=== PATIENT | male | born 1940 | race Caucasian/White ===

== ENCOUNTER → 2016-05-22 | Outpatient (REF) | payer MEDICARE ==
[2016-05-22 11:26] LABS: BASO % 0.3 % (0.0-1.0); EOS # 0.7 K/mm3 (0.0-0.50); EOS % 8.4 % (0.0-3.0); LARGE UNSTAINED CELL # 0.1 K/mm3 (0.0-0.4); LARGE UNSTAINED CELL % 1.6 % (0.0-4.0); LYMPH % 23.4 % (24.0-44.0); MEAN CORPUSCULAR HEMOGLOBIN 30.2 pg (27.0-33.0); MEAN CORPUSCULAR HGB CONC 32.6 g/dl (32.0-36.5); MEAN CORPUSCULAR VOLUME 92.4 fl (80.0-96.0); MONO # 0.6 K/mm3 (0.0-0.8); MONO % 7.3 % (0.0-5.0); NEUTROPHILS # 4.6 K/mm3 (1.8-7.7); PLATELET COUNT, AUTOMATED 232 k/mm3 (150-450); RED CELL DISTRIBUTION WIDTH 12.5 % (11.5-14.5); WHITE BLOOD COUNT 7.8 K/mm3 (4.0-10.0)
[2016-05-22 11:48] LABS: ALBUMIN 3.7 GM/DL (3.2-5.2); ALBUMIN/GLOBULIN RATIO 1.16 (1.00-1.93); ALKALINE PHOSPHATASE 82 U/L (45-117); ALT/SGPT 30 U/L (12-78); ANION GAP 6 MEQ/L (8-16); AST/SGOT 23 U/L (15-37); BILIRUBIN,TOTAL 0.3 MG/DL (0.2-1.0); BLOOD UREA NITROGEN 23 MG/DL (7-18); CALCIUM LEVEL 8.6 MG/DL (8.8-10.2); CARBON DIOXIDE LEVEL 27 MEQ/L (21-32); CHLORIDE LEVEL 110 MEQ/L (98-107); CHOLESTEROL LEVEL 150 MG/DL (<200); CREATININE FOR GFR 1.21 MG/DL (0.70-1.30); GLOMERULAR FILTRATION RATE > 60.0 (>42); GLUCOSE, FASTING 126 MG/DL (83-110); POTASSIUM SERUM 4.3 MEQ/L (3.5-5.1); SODIUM LEVEL 143 MEQ/L (136-145); THYROXINE (T4) 5.8 UG/DL (4.5-12.0); TOTAL PROTEIN 6.9 GM/DL (6.4-8.2); TRIGLYCERIDES LEVEL 88 MG/DL (<150)
[2016-05-22 11:57] LABS: ERYTHROCYTE SEDIMENTATION RATE 34 mm/hr (0-20)
== END ==
LOC: M SFHCCLAY 08:38
PROVIDERS: ATTEND Family Medicine
DX: D64.9 Anemia, unspecified (principal); E11.9 Type 2 diabetes mellitus without complications; M19.90 Unspecified osteoarthritis, unspecified site; E78.2 Mixed hyperlipidemia; R53.83 Other fatigue
CPT/HCPCS: 80053; 80061; 83036; 83540; 84402; 84403; 84436; 84443; 85025; 85652; 86038; 86140; 86200; G0463

== ENCOUNTER → 2016-08-07 | Outpatient (REF) | payer MEDICARE ==
[2016-08-07 18:33] LABS: BASO % 0.4 % (0.0-1.0); EOS # 0.6 K/mm3 (0.0-0.50); EOS % 8.1 % (0.0-3.0); LARGE UNSTAINED CELL # 0.1 K/mm3 (0.0-0.4); LYMPH # 1.5 K/mm3 (1.5-4.5); LYMPH % 19.3 % (24.0-44.0); MEAN CORPUSCULAR HEMOGLOBIN 31.6 pg (27.0-33.0); MEAN CORPUSCULAR HGB CONC 34.6 g/dl (32.0-36.5); MEAN CORPUSCULAR VOLUME 91.3 fl (80.0-96.0); MONO # 0.7 K/mm3 (0.0-0.8); MONO % 10.4 % (0.0-5.0); NEUTROPHILS # 4.2 K/mm3 (1.8-7.7); NEUTROPHILS % 59.7 % (36.0-66.0); PLATELET COUNT, AUTOMATED 203 k/mm3 (150-450); RED CELL DISTRIBUTION WIDTH 12.6 % (11.5-14.5)
== END ==
LOC: M SFHCCLAY 09:51
PROVIDERS: ATTEND Family Medicine
DX: D64.9 Anemia, unspecified (principal)
CPT/HCPCS: 83540; 85025; G0463

== ENCOUNTER → 2016-11-21 | Outpatient (REF) | payer MEDICARE ==
[2016-11-21 11:57] LABS: BASO % 0.3 % (0.0-1.0); EOS # 0.7 10^3/uL (0.0-0.50); EOS % 8.6 % (0.0-3.0); IMMATURE GRANULOCYTE % 0.4 % (0-0); LYMPH # 2.1 10^3/uL (1.5-4.5); LYMPH % 27.9 % (24.0-44.0); MEAN CORPUSCULAR HEMOGLOBIN 30.3 pg (27.0-33.0); MEAN CORPUSCULAR HGB CONC 33.5 g/dl (32.0-36.5); MEAN CORPUSCULAR VOLUME 90.5 fl (80.0-96.0); MONO # 0.9 10^3/uL (0.0-0.8); MONO % 11.1 % (0.0-5.0); NEUTROPHILS % 51.7 % (36.0-66.0); PLATELET COUNT, AUTOMATED 192 10^3/uL (150-450); RED CELL DISTRIBUTION WIDTH 12.4 % (11.5-14.5); WHITE BLOOD COUNT 7.7 10^3/uL (4.0-10.0)
[2016-11-21 12:07] LABS: ADD MANUAL DIFFER NO; DIFF SLIDE NUMBER 119
[2016-11-21 12:40] LABS: ANION GAP 6 MEQ/L (8-16); BLOOD UREA NITROGEN 17 MG/DL (7-18); CALCIUM LEVEL 9.4 MG/DL (8.8-10.2); CARBON DIOXIDE LEVEL 30 MEQ/L (21-32); CHLORIDE LEVEL 104 MEQ/L (98-107); CREATININE FOR GFR 1.03 MG/DL (0.70-1.30); GLOMERULAR FILTRATION RATE > 60.0 (>42); GLUCOSE, FASTING 98 MG/DL (83-110); POTASSIUM SERUM 4.3 MEQ/L (3.5-5.1); SODIUM LEVEL 140 MEQ/L (136-145)
== END ==
LOC: M SFHCCLAY 08:22
PROVIDERS: ATTEND Family Medicine
DX: E11.9 Type 2 diabetes mellitus without complications (principal); D64.9 Anemia, unspecified
CPT/HCPCS: 80048; 83036; 83540; 85025; G0463

== ENCOUNTER → 2017-05-22 | Outpatient (REF) | payer MEDICARE ==
[2017-05-22 16:51] LABS: BASO % 0.2 % (0.0-1.0); EOS # 0.4 10^3/uL (0.0-0.50); EOS % 4.6 % (0.0-3.0); HEMATOCRIT 44.4 % (42.0-52.0); HEMOGLOBIN 14.9 g/dl (13.5-17.5); IMMATURE GRANULOCYTE % 0.7 % (0-3.0); LYMPH # 2.2 10^3/uL (1.5-4.5); LYMPH % 25.3 % (24.0-44.0); MEAN CORPUSCULAR HEMOGLOBIN 30.4 pg (27.0-33.0); MEAN CORPUSCULAR HGB CONC 33.6 g/dl (32.0-36.5); MEAN CORPUSCULAR VOLUME 90.6 fl (80.0-96.0); MONO # 0.9 10^3/uL (0.0-0.8); MONO % 10.4 % (0.0-5.0); NEUTROPHILS # 5.1 10^3/uL (1.8-7.7); NEUTROPHILS % 58.8 % (36.0-66.0); PLATELET COUNT, AUTOMATED 168 10^3/uL (150-450); RED CELL DISTRIBUTION WIDTH 12.1 % (11.5-14.5); WHITE BLOOD COUNT 8.7 10^3/uL (4.0-10.0)
[2017-05-22 17:25] LABS: ALBUMIN/GLOBULIN RATIO 1.05 (1.00-1.93); ALKALINE PHOSPHATASE 82 U/L (45-117); ALT/SGPT 33 U/L (12-78); ANION GAP 6 MEQ/L (8-16); AST/SGOT 21 U/L (7-37); BILIRUBIN,TOTAL 0.6 MG/DL (0.2-1.0); BLOOD UREA NITROGEN 18 MG/DL (7-18); CALCIUM LEVEL 9.4 MG/DL (8.8-10.2); CARBON DIOXIDE LEVEL 27 MEQ/L (21-32); CHLORIDE LEVEL 106 MEQ/L (98-107); CHOLESTEROL LEVEL 180 MG/DL (<200); CREATININE FOR GFR 1.08 MG/DL (0.70-1.30); GLOMERULAR FILTRATION RATE > 60.0 (>42); GLUCOSE, FASTING 99 MG/DL (70-100); HDL CHOLESTEROL 50 MG/DL (>40); IRON (FE) 95 UG/DL (65-175); NON-HDL-C 130 MG/DL; POTASSIUM SERUM 4.4 MEQ/L (3.5-5.1); SODIUM LEVEL 139 MEQ/L (136-145); TOTAL PROTEIN 7.8 GM/DL (6.4-8.2); TRIGLYCERIDES LEVEL 145 MG/DL (<150)
[2017-05-22 17:28] LABS: ESTIMATED AVERAGE GLUCOSE 117 MG/DL (60-110); HEMOGLOBIN A1c 5.7 %
== END ==
LOC: M SFHCCLAY 09:30
DX: E11.9 Type 2 diabetes mellitus without complications (principal); E78.2 Mixed hyperlipidemia; D64.9 Anemia, unspecified
CPT/HCPCS: 83540

== ENCOUNTER → 2017-12-14 | Outpatient (REF) | payer MEDICARE ==
[2017-12-15 12:41] LABS: ALBUMIN 3.9 GM/DL (3.2-5.2); ALBUMIN/GLOBULIN RATIO 1.11 (1.00-1.93); ALKALINE PHOSPHATASE 89 U/L (45-117); ALT/SGPT 34 U/L (12-78); ANION GAP 8 MEQ/L (8-16); AST/SGOT 19 U/L (7-37); BILIRUBIN,TOTAL 0.4 MG/DL (0.2-1.0); BLOOD UREA NITROGEN 21 MG/DL (7-18); CALCIUM LEVEL 9.3 MG/DL (8.8-10.2); CARBON DIOXIDE LEVEL 27 MEQ/L (21-32); CHLORIDE LEVEL 104 MEQ/L (98-107); CREATININE FOR GFR 1.03 MG/DL (0.70-1.30); GLOMERULAR FILTRATION RATE > 60.0 (>42); GLUCOSE, FASTING 123 MG/DL (70-100); POTASSIUM SERUM 4.2 MEQ/L (3.5-5.1); SODIUM LEVEL 139 MEQ/L (136-145); TOTAL PROTEIN 7.4 GM/DL (6.4-8.2)
[2017-12-15 13:38] LABS: ESTIMATED AVERAGE GLUCOSE 117 MG/DL (60-110); HEMOGLOBIN A1c 5.7 %
== END ==
LOC: M SFHCCLAY 15:41
DX: E11.9 Type 2 diabetes mellitus without complications (principal)
CPT/HCPCS: 80053

== ENCOUNTER → 2018-06-17 | Outpatient (REF) | payer MEDICARE ==
[2018-06-17 16:58] LABS: BASO % 0.2 % (0.0-1.0); EOS # 0.6 10^3/uL (0.0-0.50); EOS % 5.9 % (0.0-3.0); HEMATOCRIT 45.5 % (42.0-52.0); HEMOGLOBIN 14.9 g/dl (13.5-17.5); LYMPH # 2.1 10^3/uL (1.5-4.5); LYMPH % 20.5 % (24.0-44.0); MEAN CORPUSCULAR HEMOGLOBIN 30.5 pg (27.0-33.0); MEAN CORPUSCULAR HGB CONC 32.7 g/dl (32.0-36.5); MEAN CORPUSCULAR VOLUME 93.2 fl (80.0-96.0); MONO # 1.1 10^3/uL (0.0-0.8); MONO % 10.6 % (0.0-5.0); NEUTROPHILS # 6.3 10^3/uL (1.8-7.7); NEUTROPHILS % 62.6 % (36.0-66.0); PLATELET COUNT, AUTOMATED 211 10^3/uL (150-450); RED BLOOD COUNT 4.88 10^6/uL (4.30-6.10)
[2018-06-17 17:05] LABS: ALT/SGPT 34 U/L (12-78); BILIRUBIN,TOTAL 0.8 MG/DL (0.2-1.0); BLOOD UREA NITROGEN 16 MG/DL (7-18); CALCIUM LEVEL 9.2 MG/DL (8.8-10.2); CARBON DIOXIDE LEVEL 30 MEQ/L (21-32); CHLORIDE LEVEL 104 MEQ/L (98-107); CHOLESTEROL LEVEL 181 MG/DL (<200); CHOLESTEROL RISK RATIO 3.232 (<5); CREATININE FOR GFR 1.11 MG/DL (0.70-1.30); GLOMERULAR FILTRATION RATE > 60.0 (>42); GLUCOSE, FASTING 109 MG/DL (70-100); HDL CHOLESTEROL 56 MG/DL (>40); IRON (FE) 116 UG/DL (65-175); LDL CHOLESTEROL 89 MG/DL (<100); NON-HDL-C 125 MG/DL; POTASSIUM SERUM 4.5 MEQ/L (3.5-5.1); SODIUM LEVEL 138 MEQ/L (136-145); TOTAL PROTEIN 7.5 GM/DL (6.4-8.2); TRIGLYCERIDES LEVEL 178 MG/DL (<150)
[2018-06-17 17:28] LABS: MALB URINE SIEMENS 33.8 MG/L; MAU/CREAT RATIO 20.6 MCG/MG (0.0-30.0)
[2018-06-17 17:53] LABS: HEMOGLOBIN A1c 5.7 %
== END ==
LOC: M SFHCCLAY 09:34
PROVIDERS: ATTEND Family Medicine
DX: D64.9 Anemia, unspecified (principal); E11.9 Type 2 diabetes mellitus without complications
CPT/HCPCS: 80053; 80061; 82043; 83036; 83540; 85025; G0463

== ENCOUNTER → 2018-12-21 | Outpatient (REF) | payer MEDICARE ==
[2018-12-21 11:27] LABS: BASO % 0.3 % (0.0-1.0); EOS # 0.5 10^3/uL (0.0-0.5); EOS % 4.7 % (0.0-3.0); HEMATOCRIT 44.7 % (42.0-52.0); HEMOGLOBIN 14.6 g/dl (13.5-17.5); LYMPH # 2.1 10^3/uL (1.5-5.0); LYMPH % 22.2 % (24.0-44.0); MEAN CORPUSCULAR HEMOGLOBIN 31.1 pg (27.0-33.0); MEAN CORPUSCULAR HGB CONC 32.7 g/dl (32.0-36.5); MEAN CORPUSCULAR VOLUME 95.3 fl (80.0-96.0); MONO % 10.8 % (0.0-5.0); NEUTROPHILS # 5.9 10^3/uL (1.5-8.5); NEUTROPHILS % 61.6 % (36.0-66.0); PLATELET COUNT, AUTOMATED 196 10^3/uL (150-450); RED BLOOD COUNT 4.69 10^6/uL (4.30-6.10); WHITE BLOOD COUNT 9.5 10^3/uL (4.0-10.0)
[2018-12-21 11:32] LABS: BLOOD UREA NITROGEN 16 MG/DL (7-18); CALCIUM LEVEL 9.7 MG/DL (8.8-10.2); CARBON DIOXIDE LEVEL 27 MEQ/L (21-32); CHLORIDE LEVEL 106 MEQ/L (98-107); CREATININE FOR GFR 1.07 MG/DL (0.70-1.30); GLOMERULAR FILTRATION RATE > 60.0 (>42); GLUCOSE, FASTING 110 MG/DL (70-100); IRON (FE) 85 UG/DL (65-175); POTASSIUM SERUM 4.4 MEQ/L (3.5-5.1); SODIUM LEVEL 139 MEQ/L (136-145)
[2018-12-21 12:19] LABS: HEMOGLOBIN A1c 5.9 %
== END ==
LOC: M SFHCCLAY 08:27
PROVIDERS: ATTEND Family Medicine
DX: E11.9 Type 2 diabetes mellitus without complications (principal); D64.9 Anemia, unspecified
CPT/HCPCS: 80048; 83036; 83540; 85025; G0463

== ENCOUNTER 2019-02-27 14:53 | Emergency (ER) | payer MEDICARE ==
[~2019-02-27] VITALS: Ht 170.2 cm; Wt 90.9 kg
[2019-02-27] MEDS ORDERED: SIMV20TA22 PO (15:37)
[2019-02-27] MEDS ORDERED: [UNRECOGNIZED DRUG - OTHER] (15:39)
[2019-02-27] MEDS ORDERED: BREO1INH PO (15:41)
[2019-02-27 16:06] LABS: HEMATOCRIT 45.5 % (42.0-52.0); HEMOGLOBIN 14.4 g/dl (13.5-17.5); MEAN CORPUSCULAR HEMOGLOBIN 29.9 pg (27.0-33.0); MEAN CORPUSCULAR HGB CONC 31.6 g/dl (32.0-36.5); MEAN CORPUSCULAR VOLUME 94.6 fl (80.0-96.0); PLATELET COUNT, AUTOMATED 216 10^3/uL (150-450); RED BLOOD COUNT 4.81 10^6/uL (4.30-6.10); WHITE BLOOD COUNT 13.1 10^3/uL (4.0-10.0)
[2019-02-27] MEDS ORDERED: NS 1,000 ML IV ONE (16:15)
[2019-02-27] MEDS ORDERED: METOCLOPRAMIDE INJ 10MG/2ML VIAL (J2765) IV ONE (16:15)
[2019-02-27] MEDS ORDERED: PANTOPRAZOLE 40MG INJ (PROTONIX) (C9113) IV ONE (16:15)
[2019-02-27 16:19] LABS: ALBUMIN 3.4 GM/DL (3.2-5.2); ALT/SGPT 31 U/L (12-78); BILIRUBIN,DIRECT 0.1 MG/DL (0.0-0.2); BILIRUBIN,TOTAL 0.4 MG/DL (0.2-1.0); BLOOD UREA NITROGEN 12 MG/DL (7-18); CALCIUM LEVEL 8.4 MG/DL (8.8-10.2); CARBON DIOXIDE LEVEL 20 MEQ/L (21-32); CHLORIDE LEVEL 106 MEQ/L (98-107); GLOMERULAR FILTRATION RATE > 60.0 (>42); GLUCOSE, FASTING 97 MG/DL (70-100); LIPASE 148 U/L (73-393); SODIUM LEVEL 137 MEQ/L (136-145); TOTAL PROTEIN 7.1 GM/DL (6.4-8.2)
[2019-02-27] MEDS: GASTROGRAFIN SOLUTION 30ML PO SCH ×2 (17:08→17:40)
[2019-02-27 17:27] LABS: ATYPICAL LYMPH 7 % (0-5); EOSINOPHILS 2 % (0-3); LYMPHOCYTES 17 % (16-44); METAMYELOCYTES 1 % (0-0); MONOCYTES 5 % (0-5); NEUTROPHILS 60 % (28-66)
[2019-02-27 17:28] LABS: OVALOCYTES 1+; PLATELET ESTIMATE NORMAL (NORMAL); POIKILOCYTOSIS 1+
[2019-02-27 17:38] LABS: INR 1.08; PROTHROMBIN TIME 13.7 SECONDS (11.8-14.0)
[2019-02-27] MEDS ORDERED: ISOVUE-370 76% 100ML VIAL (Q9967) As Ordered ONE (18:22)
--- NOTE | 2019-02-27 19:06 | REPVR ---
PROCEDURE INFORMATION: Exam: CT Abdomen And Pelvis With Contrast Exam date and time: 02/27/2019 6:21 PM Age: 78 years old Clinical indication: Abdominal pain; Generalized; Additional info: Abd pain TECHNIQUE: Imaging protocol: Computed tomography of the abdomen and pelvis with intravenous contrast. Radiation optimization: All CT scans at this facility use at least one of these dose optimization techniques: automated exposure control; mA and/or kV adjustment per patient size (includes targeted exams where dose is matched to clinical indication); or iterative reconstruction. Contrast material: ISOVUE 370; Contrast volume: 100 ml; Contrast route: IV; Other contrast: Route: Oral, Material: gastrografin; COMPARISON: No relevant prior studies available. FINDINGS: Mediastinum: A small hiatal hernia is present. Liver: There is a diffuse decrease in hepatic parenchymal density, consistent with fatty infiltration. Gallbladder and bile ducts: There are gallstones present. No evidence of cholecystitis demonstrated. Pancreas: Normal. No ductal dilation. Spleen: Normal. No splenomegaly. Adrenals: Normal. No mass. Kidneys and ureters: Punctate nonobstructive calculus lower pole right kidney. Left renal cyst measures 4.6 cm. Stomach and bowel: There is a diffusely boggy appearance of the mid and distal left colon with mural stratification and an ahasutral countour. There are pericolonic inflammatory changes. Findings consistent with acute colitis. No abscess demonstrated. Ahaustral appearance of the sigmoid colon may be related to prior involvement with colitis. Appendix: No evidence of appendicitis. Intraperitoneal space: Unremarkable. No free air. No significant fluid collection. Vasculature: The aorta demonstrates moderate atherosclerotic calcification. Lymph nodes: Unremarkable. No enlarged lymph nodes. Bladder: Unremarkable as visualized. Reproductive: The prostate gland demonstrates mild hyperplasia. Moderate right hydrocele and small left hydrocele. Bones/joints: Mild central spinal stenosis L2-L3, moderate central spinal stenosis L3-L4, moderate to severe central spinal stenosis L4-L5. Bulging annulus L5-S1. Soft tissues: Left inguinal hernia. IMPRESSION: 1. There is a diffuse decrease in hepatic parenchymal density, consistent with fatty infiltration. 2. There are gallstones present. No evidence of cholecystitis demonstrated. 3. Small hiatal hernia. 4. Punctate nonobstructive calculus lower pole right kidney. Left renal cyst measures 4.6 cm. 5. There is a diffusely boggy appearance of the mid and distal left colon with mural stratification and an ahasutral countour. There are pericolonic inflammatory changes. Findings consistent with acute colitis. No abscess demonstrated. 6. Mild prostatic hyperplasia. Electronically signed by: Efrain Ace On 02/27/2019 19:05:43 PM
[2019-02-27] MEDS ORDERED: DICY10CA13 PO (19:42)
[2019-02-27 19:50] VITALS: BP 158/74
== END 2019-02-27 19:56 | disposition home or self-care (01) ==
LOC: M ED 14:53
DX: K51.918 Ulcerative colitis, unspecified with other complication (principal); J44.9 Chronic obstructive pulmonary disease, unspecified; E78.5 Hyperlipidemia, unspecified; Z88.0 Allergy status to penicillin
CPT/HCPCS: 36415; 74177; 80048; 80076; 83690; 85025; 85610; 96361; 96374; 96375; 99284; C9113; J2765; Q9963; Q9967

== ENCOUNTER 2019-04-07 10:41 | Observation (INO) | payer MEDICARE ==
[~2019-04-07] VITALS: Ht 170.2 cm; Wt 88.8 kg
[~2019-04-07 10:41] MED LIST: BREO1INH PO; DICY10CA13 PO; SIMV20TA22 PO; [UNRECOGNIZED DRUG - OTHER]
[2019-04-07] MEDS ORDERED: FAMO1TAB11 PO (10:50)
[2019-04-07] MEDS ORDERED: FLUTISP (10:50)
[2019-04-07] MEDS ORDERED: ONDA-83 PO (10:50)
[2019-04-07] MEDS ORDERED: LOPE2CAP PO (10:50)
[2019-04-07 12:00] LABS: BASO # 0.1 10^3/uL (0.0-0.2); BASO % 0.5 % (0.0-1.0); EOS % 7.6 % (0.0-3.0); HEMATOCRIT 40.2 % (42.0-52.0); HEMOGLOBIN 13.1 g/dl (13.5-17.5); LYMPH # 2.1 10^3/uL (1.5-5.0); LYMPH % 17.2 % (24.0-44.0); MEAN CORPUSCULAR HEMOGLOBIN 29.4 pg (27.0-33.0); MEAN CORPUSCULAR HGB CONC 32.6 g/dl (32.0-36.5); MEAN CORPUSCULAR VOLUME 90.3 fl (80.0-96.0); MONO % 16.6 % (0.0-5.0); NEUTROPHILS % 56.4 % (36.0-66.0); PLATELET COUNT, AUTOMATED 284 10^3/uL (150-450); RED BLOOD COUNT 4.45 10^6/uL (4.30-6.10); WHITE BLOOD COUNT 12.4 10^3/uL (4.0-10.0)
[2019-04-07 12:26] LABS: ALT/SGPT 21 U/L (12-78); BILIRUBIN,DIRECT 0.2 MG/DL (0.0-0.2); BILIRUBIN,TOTAL 0.4 MG/DL (0.2-1.0); BLOOD UREA NITROGEN 11 MG/DL (7-18); CALCIUM LEVEL 8.5 MG/DL (8.8-10.2); CARBON DIOXIDE LEVEL 28 MEQ/L (21-32); CHLORIDE LEVEL 104 MEQ/L (98-107); CREATININE FOR GFR 1.01 MG/DL (0.70-1.30); GLOMERULAR FILTRATION RATE > 60.0 (>42); GLUCOSE, FASTING 113 MG/DL (70-100); LIPASE 204 U/L (73-393); SODIUM LEVEL 138 MEQ/L (136-145); TOTAL PROTEIN 6.9 GM/DL (6.4-8.2)
[2019-04-07] MEDS ORDERED: NS 1,000 ML IV ONE (12:30)
[2019-04-07 12:39] LABS: MONO # 2.1 10^3/uL (0.0-0.8)
[2019-04-07] MEDS: GASTROGRAFIN SOLUTION 30ML PO SCH ×2 (13:19→13:20)
[2019-04-07] MEDS ORDERED: ISOVUE-370 76% 100ML VIAL (Q9967) As Ordered ONE (14:41)
[2019-04-07 14:46] LABS: INR 1.15; PROTHROMBIN TIME 14.5 SECONDS (11.8-14.0)
[2019-04-07 14:47] LABS: PARTIAL THROMBOPLASTIN TIME 32.4 SECONDS (25.0-38.4)
--- NOTE | 2019-04-07 15:17 | REP ---
Clinical: Rectal bleeding and lower abdominal pain. Technique: Axial contrast enhanced images from the lung bases to the pubic symphysis using oral (per protocol) and 100 ml Isovue 370 intravenous contrast material with coronal and sagittal re-formations. Comparison: 02/27/2019. Findings: Mild mucosal thickening of the ascending through sigmoid colon is consistent with a mild pancolitis. No bowel obstruction. No free air. No ascites or drainable collection. Small bowel is unremarkable. Liver, spleen, pancreas, bilateral adrenal glands and right kidney are normal. Left kidney again demonstrates 5 cm simple cyst. Cholelithiasis noted without acute cholecystitis. Pelvis demonstrates multiple bladder calculi up to 11 mm. Prostate and seminal vesicles are relatively normal for age. Small fat containing left inguinal hernia noted. No ascites. No free air. No adenopathy. Abdominal aorta without aneurysm or dissection. Musculoskeletal structures demonstrate age-related changes. Impression: 1. Mild pancolitis. No obstruction, free air, ascites or drainable collection/abscess. 2. Stable simple 5 cm left renal cyst. 3. Cholelithiasis. 4. Few bladder stones up to 11 mm. Electronically Signed by Phi Montelongo MD 04/07/2019 03:08 P
[2019-04-07] MEDS ORDERED: NS 1,000 ML IV SCH (15:45)
--- NOTE | 2019-04-07 16:28 | HPEPDOC ---
General Date of Admission 04/07/19 Date of Service: Apr 07, 2019 Chief Complaint The patient is a 78-year-old male admitted with a reason for visit of a abdominal pain and rectal bleed. History of Present Illness 78 year old male presents with bloody stools. States had colonoscopy last year in March, told he had multiple polyps. Since then with episodes of bloody stool, described as bright red mixed with stool and sometimes black. Episodes have been getting worse over the past month, states now almost on a daily basis. Also with b/l LQ pain, crampy in nature. Presented to the ED 5 days prior, was told he possibly had UC and was referred to GI. Saw Dr. Sanches and was told to return to the ED if symptoms returned. Presents with stable vitals, Hgb 13. Plan for inpatient admission, colonoscopy tentatively for Thursday. Home Medications Scheduled Famotidine (Famotidine) 20 Mg Tablet, 20 MG PO BID, (Reported) Fluticasone Propionate (Fluticasone Propionate) 16 Gm [place].susp, 1 SPRAY NA DAILY, (Reported) Fluticasone/Vilanterol (Breo Ellipta 100-25 Mcg INH) 1 Each Blst.w.dev, 1 PUFF PO DAILY, (Reported) Simvastatin (Simvastatin) 20 Mg Tablet, 20 MG PO QHS, (Reported) Scheduled PRN Loperamide HCl (Loperamide) 2 Mg Capsule, 2 MG PO BID PRN for DIARRHEA, (Reported) Ondansetron HCl (Ondansetron HCl) 4 Mg Tablet, 4 MG PO BID PRN for NAUSEA OR VOMITING, (Reported) Allergies Coded Allergies: Penicillins (Verified Allergy, Unknown, 02/27/19) Past Medical History Medical History HLD, obstructive lung disease, allergic rhinitis. Surgical History as above Family History Significant Family History: No pertinent family hx Social History * Smoker: Denies, former Smoker Alcohol: Denies Drugs: denies A-FIB/CHADSVASC A-FIB History Current/History of A-Fib/PAF?: No Review of Systems Constitutional: Reports: Fatigue, Weight Loss Gastrointestinal: Reports: Hematochezia Physical Examination General Exam: Positive: Alert, No Acute Distress Eye Exam: Positive: PERRLA, Conjunctiva & lids normal, EOMI; Negative: Sclera icteric ENT Exam: Positive: Atraumatic, Mucous membr. moist/pink, Pharynx Normal Neck Exam: Positive: Supple; Negative: JVD, thyromegaly Chest Exam: Positive: Clear to auscultation, Normal air movement Heart Exam: Positive: Rate Normal, Regular Rhythm, Normal S1, Normal S2; Negative: Murmurs, Rubs Telemetry: Positive: No significant arrhythmia Abdomen Exam: Positive: Normal bowel sounds, Soft; Negative: Tenderness, Hepatospenomegaly Extremity Exam: Positive: Normal pulses; Negative: Clubbing, Cyanosis, Edema Skin Exam: Positive: Nl turgor and temperature; Negative: Breakdown, Lesion Neuro Exam: Positive: Normal Gait, Normal Speech, Cranial Nerves 3-12 NL, R eflexes 2+ Psych Exam: Positive: Mental status NL, Mood NL, Oriented x 3 Vital Signs Vital Signs Date Time Temp Pulse Resp B/P (MAP) Pulse Ox O2 Delivery O2 Flow Rate FiO2 04/07/19 11:04 04/07/19 10:42 97.4 79 16 96 Room Air Laboratory Data Labs 24H Laboratory Tests 2 04/07/19 11:43: Immature Granulocyte % (Auto) 1.7, Neutrophils (%) (Auto) 56.4, Lymphocytes (%) (Auto) 17.2L, Monocytes (%) (Auto) 16.6H, Eosinophils (%) (Auto) 7.6H, Basophils (%) (Auto) 0.5, Neutrophils # (Auto) 7.0, Lymphocytes # (Auto) 2.1, Monocytes # (Auto) 2.1H, Eosinophils # (Auto) 1.0H, Basophils # (Auto) 0.1, Nucleated Red Blood Cells % (auto) 0.0, Anion Gap 6L, Glomerular Filtration Rate > 60.0, Calcium Level 8.5L, Total Bilirubin 0.4, Direct Bilirubin 0.2, Aspartate Amino Transf (AST/SGOT) 13, Alanine Aminotransferase (ALT/SGPT) 21, Alkaline Phosphatase 79, Total Protein 6.9, Albumin 3.0L, Albumin/Globulin Ratio 0.77L, Lipase 204 04/07/19 14:22: Prothrombin Time 14.5H, Prothromb Time International Ratio 1.15, Activated Partial Thromboplast Time 32.4 CBC/BMP Laboratory Tests 04/07/19 11:43 Assessment/Plan 1. GIB - admit to med/surg. - vitals stable, Hgb 13. - monitor CBC, transfuse as needed. - consult to GI Dr. Sanches. - plan for colonoscopy on Thursday. - pancolitis on CT A/P, IV antibiotics. - clear liquids. - protonix IV. Plan / VTE VTE Prophylaxis Ordered?: Yes LISANDRO VELARDE MD Apr 07, 2019 16:28
[2019-04-07] MEDS: NS 1,000 ML IV SCH (17:04)
[2019-04-07] MEDS: metroNIDAZOLE 500 MG in IV 1 EA IV SCH (17:08)
[2019-04-07] MEDS: LevoFLOXacin IV 500 MG in IV 1 EA IV SCH (19:55)
[2019-04-07] MEDS: PANTOPRAZOLE 40MG INJ (PROTONIX) (C9113) IV SCH (20:59)
[2019-04-07] MEDS ORDERED: GOLYTELY SOLN 4000 ML BTL PO ONE (22:00)
[2019-04-07] MEDS ORDERED: BISACODYL 5 MG TAB PO ONE (22:00)
[2019-04-08] VITALS (7 sets, daily range): BP systolic 132–158; BP diastolic 60–76
[2019-04-08] MEDS ORDERED: ONDANSETRON 4MG/2ML VIAL (J2405) As Ordered ONE (01:07)
[2019-04-08] MEDS: metroNIDAZOLE 500 MG in IV 1 EA IV SCH ×3 (01:09→17:23)
[2019-04-08] MEDS ORDERED: ONDANSETRON 4 MG ORAL DISINTEGRATING TAB (Q0162 PER 1MG) As Ordered ONE (01:12)
[2019-04-08] MEDS ORDERED: ONDANSETRON 4 MG TAB (S0181) PO PRN (01:15)
[2019-04-08] MEDS: NS 1,000 ML IV SCH ×2 (02:50→14:32)
[2019-04-08] MEDS: PANTOPRAZOLE 40MG INJ (PROTONIX) (C9113) IV SCH ×2 (08:48→20:19)
--- NOTE | 2019-04-08 10:58 | IPNPDOC ---
Subjective Date Seen The patient was seen on 04/08/19. Subjective Chief Complaint/HPI seen and examined at bedside, doing well, no complaints. General: Reports: Normal Appetite; Denies: Chills, Night Sweats, Fatigue, Malaise Constitutional: Denies: Chills, Fever, Night Sweats Eyes: Denies: Pain, Vision change ENT: Denies: Head Aches, Ear Pain, Dysphagia Skin: Denies: Rash, Lesions, Breakdown Pulmonary: Denies: Dyspnea, Cough Cardiovascular: Denies: Chest Pain, Palpitations, Orthopnea, Paroxysmal Noc. Dyspnea, Lt Headedness Gastrointestinal: Denies: Nausea, Vomiting, Abdominal Pain, Diarrhea, Constipation Genitourinary: Denies: Dysuria, Frequency, Incontinence, Retention Hematologic: Denies: Bruising, Bleeding Excessively Musculoskeletal: Denies: Neck Pain, Back Pain, Joint Pain, Muscle Pain, Spasms Neurological: Denies: Weakness, Numbness, Change in speech, Confusion Psych: Reports: Mood Normal; Denies: Depression, Memory Issues Objective Physical Examination General Exam: Positive: Alert, No Acute Distress Eye Exam: Positive: PERRLA, Conjunctiva & lids normal, EOMI; Negative: Sclera icteric ENT Exam: Positive: Atraumatic, Mucous membr. moist/pink, Pharynx Normal Neck Exam: Positive: Supple; Negative: JVD, thyromegaly Chest Exam: Positive: Clear to auscultation, Normal air movement Heart Exam: Positive: Rate Normal, Regular Rhythm, Normal S1, Normal S2; Negative: Murmurs, Rubs Telemetry: Positive: No significant arrhythmia Abdomen Exam: Positive: Normal bowel sounds, Soft; Negative: Tenderness, Hepatospenomegaly Male Exam: Positive: Normal Genital Exam Extremity Exam: Positive: Normal pulses; Negative: Clubbing, Cyanosis, Edema Skin Exam: Positive: Nl turgor and temperature; Negative: Breakdown, Lesion Neuro Exam: Positive: Normal Gait, Normal Speech, Cranial Nerves 3-12 NL, Reflexes 2+ Psych Exam: Positive: Mental status NL, Mood NL, Oriented x 3 Assessment /Plan Assessment 1. GIB - vitals stable. - monitor CBC, transfuse as needed. - GI Dr. Sanches. - plan for colonoscopy. - pancolitis on CT A/P, IV antibiotics. - NPO. - protonix IV. Plan/VTE VTE Prophylaxis Ordered?: Yes VS, I&O, 24H, Fishbone Vital Signs/I&O Vital Signs Date Time Temp Pulse Resp B/P (MAP) Pulse Ox O2 Delivery O2 Flow Rate FiO2 04/08/19 07:53 96.3 85 20 148/70 (96) 96 Room Air Laboratory Data 24H LABS Laboratory Tests 2 04/07/19 11:43: Immature Granulocyte % (Auto) 1.7, Neutrophils (%) (Auto) 56.4, Lymphocytes (%) (Auto) 17.2L, Monocytes (%) (Auto) 16.6H, Eosinophils (%) (Auto) 7.6H, Basophils (%) (Auto) 0.5, Neutrophils # (Auto) 7.0, Lymphocytes # (Auto) 2.1, Monocytes # (Auto) 2.1H, Eosinophils # (Auto) 1.0H, Basophils # (Auto) 0.1, Nucleated Red Blood Cells % (auto) 0.0, Anion Gap 6L, Glomerular Filtration Rate > 60.0, Calcium Level 8.5L, Total Bilirubin 0.4, Direct Bilirubin 0.2, Aspartate Amino Transf (AST/SGOT) 13, Alanine Aminotransferase (ALT/SGPT) 21, Alkaline Phosphatase 79, Total Protein 6.9, Albumin 3.0L, Albumin/Globulin Ratio 0.77L, Lipase 204 04/07/19 14:22: Prothrombin Time 14.5H, Prothromb Time International Ratio 1.15, Activated Partial Thromboplast Time 32.4 04/08/19 08:13: Erythrocyte Sedimentation Rate 56H, C-Reactive Protein, Quantitative 5.29H CBC/BMP Laboratory Tests 04/07/19 11:43 Microbiology Microbiology 04/07/19 Gastrointestinal Tract Panel (PCR), Ordered Pending LISANDRO VELARDE MD Apr 08, 2019 10:58
[2019-04-08] MEDS ORDERED: LIDOCAINE 2% INJ 100 MG/5 ML SDV (FOR ANES.) As Ordered ONE (15:57)
[2019-04-08] MEDS ORDERED: propofoL 200 MG/20 ML VIAL As Ordered ONE (15:57)
--- NOTE | 2019-04-08 16:43 | ROOR ---
Patient Name: García Perez Procedure Date: 04/08/2019 3:22 PM Date of : 1940 Age: 78 Room: Main OR Gender: Male Note Status: Finalized Procedure: Upper GI endoscopy Indications: Generalized abdominal pain, Nausea with vomiting Providers: Tom Sanches MD Referring MD: IRINA FIELD DO Requesting Provider: Medicines: Monitored Anesthesia Care Complications: No immediate complications. Procedure: Pre-Anesthesia Assessment: - Prior to the procedure, a History and Physical was performed, and patient medications and allergies were reviewed. The patient is competent. The risks and benefits of the procedure and the sedation options and risks were discussed with the patient. All questions were answered and informed consent was obtained. Patient identification and proposed procedure were verified by the physician, the nurse and the anesthesiologist in the procedure room. Mental Status Examination: alert and oriented. Airway Examination: normal oropharyngeal airway and neck mobility. Respiratory Examination: clear to auscultation. CV Examination: normal. Prophylactic Antibiotics: The patient does not require prophylactic antibiotics. Prior Anticoagulants: The patient has taken no previous anticoagulant or antiplatelet agents. ASA Grade Assessment: II - A patient with mild systemic disease. After reviewing the risks and benefits, the patient was deemed in satisfactory condition to undergo the procedure. The anesthesia plan was to use monitored anesthesia care (MAC). Immediately prior to administration of medications, the patient was re-assessed for adequacy to receive sedatives. The heart rate, respiratory rate, oxygen saturations, blood pressure, adequacy of pulmonary ventilation, and response to care were monitored throughout the procedure. The physical status of the patient was re-assessed after the procedure. The Endoscope was introduced through the mouth, and advanced to the second part of duodenum. The upper GI endoscopy was accomplished without difficulty. The patient tolerated the procedure well. Findings: The examined esophagus was normal. Diffuse severe inflammation characterized by congestion (edema), erythema, friability and granularity was found in the gastric body and in the gastric antrum. Biopsies were taken with a cold forceps for Helicobacter pylori testing. Biopsies were taken with a cold forceps for histology. Verification of patient identification for the specimen was done by the physician and nurse using the patient's name, date and medical record number. Estimated blood loss was minimal. Patchy moderately erythematous mucosa without active bleeding and with no stigmata of bleeding was found in the duodenal bulb and in the second portion of the duodenum. Biopsies for histology were taken with a cold forceps for evaluation of celiac disease. For hemostasis, one hemostatic clip was successfully placed. There was no bleeding at the end of the procedure. Impression: - Normal esophagus. - Gastritis. Biopsied. - Erythematous duodenopathy. Biopsied. Clip was placed. Recommendation: - Patient has a contact number available for emergencies. The signs and symptoms of potential delayed complications were discussed with the patient. Return to normal activities tomorrow. Written discharge instructions were provided to the patient. - [facility]. - Advance diet as tolerated. - Continue present medications. - Use Pepcid (famotidine) 20 mg PO Twice daily ( take edging machine setter on empty stomach and at bedtime) for 8 weeks. - Await pathology results. - If Biopsy shows H. pylori will need therapy with antibiotic course.. - Return to GI clinic in [facility] (address [address], [address], [place], [facility]) in 4 -- 6 weeks. Please call GI clinic @ [phone] for apppointment date and time. - Return to primary care physician. Tom Sanches MD Tom Sanches MD 04/08/2019 4:42:55 PM Electronically signed by Tom Sanches MD Number of Addenda: 0 Note Initiated On: 04/08/2019 3:22 PM Estimated Blood Loss: Estimated blood loss was minimal.
[2019-04-08] MEDS ORDERED: LR 1,000 ML IV SCH (16:45)
[2019-04-08] MEDS ORDERED: ONDANSETRON 4MG/2ML VIAL (J2405) IV PRN (16:45)
--- NOTE | 2019-04-08 16:50 | ROOR ---
Patient Name: García Perez Procedure Date: 04/08/2019 4:02 PM Date of : 1940 Age: 78 Room: Main OR Gender: Male Note Status: Finalized Procedure: Colonoscopy Indications: Chronic diarrhea, Hematochezia Providers: Tom Sanches MD Referring MD: IRINA FIELD DO Requesting Provider: Medicines: Monitored Anesthesia Care Complications: No immediate complications. Procedure: Pre-Anesthesia Assessment: - Prior to the procedure, a History and Physical was performed, and patient medications and allergies were reviewed. The patient is competent. The risks and benefits of the procedure and the sedation options and risks were discussed with the patient. All questions were answered and informed consent was obtained. Patient identification and proposed procedure were verified by the physician, the nurse and the anesthesiologist in the procedure room. Mental Status Examination: alert and oriented. Airway Examination: normal oropharyngeal airway and neck mobility. Respiratory Examination: clear to auscultation. CV Examination: normal. Prophylactic Antibiotics: The patient does not require prophylactic antibiotics. Prior Anticoagulants: The patient has taken no previous anticoagulant or antiplatelet agents. ASA Grade Assessment: III - A patient with severe systemic disease. After reviewing the risks and benefits, the patient was deemed in satisfactory condition to undergo the procedure. The anesthesia plan was to use monitored anesthesia care (MAC). Immediately prior to administration of medications, the patient was re-assessed for adequacy to receive sedatives. The heart rate, respiratory rate, oxygen saturations, blood pressure, adequacy of pulmonary ventilation, and response to care were monitored throughout the procedure. The physical status of the patient was re-assessed after the procedure. The Colonoscope was introduced through the anus and advanced to the cecum, identified by appendiceal orifice and ileocecal valve. The colonoscopy was performed without difficulty. The patient tolerated the procedure well. The quality of the bowel preparation was poor. The ileocecal valve, appendiceal orifice, and rectum were photographed. Scope insertion time was 3 minutes. Scope withdrawal time was 8 minutes. The total duration of the procedure was 12 minutes. Findings: The perianal and digital rectal examinations were normal. Inflammation characterized by altered vascularity, congestion (edema), friability, granularity, mucus, confluent ulcerations and shallow ulcerations was found in a continuous and circumferential pattern from the rectum to the cecum. No sites were spared. This was graded as Kelly Score 3 (severe, with spontaneous bleeding, ulcerations). Biopsies were taken with a cold forceps for histology. Fluid aspiration was performed through the scope suction channel. The amount of fluid collected was 20 mL. The fluid was yellow. Sample(s) were sent for microbiology. Verification of patient identification for the specimen was done by the physician and nurse using the patient's name, date and medical record number. Estimated blood loss was minimal. Retroflexion in the rectum was not performed due to anatomy. Impression: - Preparation of the colon was poor. - Pancolitis. Inflammation was found from the rectum to the cecum. This was graded as Kelly Score 3 (severe disease). Biopsied. Fluid aspiration performed. Recommendation: - Patient has a contact number available for emergencies. The signs and symptoms of potential delayed complications were discussed with the patient. Return to normal activities tomorrow. Written discharge instructions were provided to the patient. - Advance diet as tolerated. - Continue present medications. - Await pathology results. - Repeat colonoscopy in 6 months to check healing and to assess disease activity. - Telephone GI clinic for pathology results in 2 weeks. - Return to GI clinic in [facility] (address [address], [address], [place], [address]) in 4 -- 6 weeks. Please call GI clinic @ [phone] for apppointment date and time. - Return to primary care physician. Tom Sanches MD Tom Sanches MD 04/08/2019 4:49:58 PM Electronically signed by Tom Sanches MD Number of Addenda: 0 Note Initiated On: 04/08/2019 4:02 PM Estimated Blood Loss: Estimated blood loss was minimal.
[2019-04-08] MEDS: LevoFLOXacin IV 500 MG in IV 1 EA IV SCH (18:57)
[2019-04-09] MEDS: metroNIDAZOLE 500 MG in IV 1 EA IV SCH ×2 (00:51→09:22)
[2019-04-09 02:15] VITALS: BP 130/60
[2019-04-09 06:00] VITALS: BP 122/59
[2019-04-09 07:16] LABS: HEMATOCRIT 32.9 % (42.0-52.0); MEAN CORPUSCULAR HEMOGLOBIN 29.6 pg (27.0-33.0); MEAN CORPUSCULAR HGB CONC 32.5 g/dl (32.0-36.5); MEAN CORPUSCULAR VOLUME 90.9 fl (80.0-96.0); PLATELET COUNT, AUTOMATED 215 10^3/uL (150-450); RED BLOOD COUNT 3.62 10^6/uL (4.30-6.10); WHITE BLOOD COUNT 12.5 10^3/uL (4.0-10.0)
[2019-04-09 07:21] LABS: HEMOGLOBIN 10.7 g/dl (13.5-17.5)
[2019-04-09 07:42] LABS: BLOOD UREA NITROGEN 7 MG/DL (7-18); CALCIUM LEVEL 8.1 MG/DL (8.8-10.2); CARBON DIOXIDE LEVEL 27 MEQ/L (21-32); CHLORIDE LEVEL 107 MEQ/L (98-107); CREATININE FOR GFR 0.94 MG/DL (0.70-1.30); GLOMERULAR FILTRATION RATE > 60.0 (>42); GLUCOSE, FASTING 93 MG/DL (70-100); POTASSIUM SERUM 3.3 MEQ/L (3.5-5.1); SODIUM LEVEL 139 MEQ/L (136-145)
[2019-04-09] MEDS: PANTOPRAZOLE 40MG INJ (PROTONIX) (C9113) IV SCH (09:22)
--- NOTE | 2019-04-09 11:06 | DS.PDOC ---
Discharge Summary General Date of Admission Apr 07, 2019 at 10:44 Date of Discharge 04/09/19 Discharge Summary PROCEDURES PERFORMED DURING STAY: [None]. ADMITTING DIAGNOSES: 1. GIB DISCHARGE DIAGNOSES: 1. GIB COMPLICATIONS/CHIEF COMPLAINT: GIB HISTORY OF PRESENT ILLNESS: Please refer to for detailed HPI. HOSPITAL COURSE: Patient was admitted and treated for the following conditions: 1. GIB - patient underwent colonoscopy with Dr. Sanches, - pancolitis with inflammation found from the rectum to the cecum. - biopsies were taken. - patient restarted on diet which he has been tolerating. - plan to repeat colonoscopy in 6 mths, outpatient follow up at GI clinic in 4-6 weeks. - f/u pathology results in 2 weeks. DISCHARGE MEDICATIONS: Please see below. ALLERGIES: Please see below. PHYSICAL EXAMINATION ON DISCHARGE: VITAL SIGNS: Please see below. GENERAL: AAO x 3, NAD. HEENT: NCAT, anicteric sclera, PERRLA/EOMI NECK: supple, no JVD, no thyromegaly CARDIOVASCULAR EXAMINATION: NS1S2, regular, no murmurs/rubs RESPIRATORY EXAMINATION: CTA b/l, no wheezing, rales, rhonchi. ABDOMINAL EXAMINATION: NT/ND, positive bowel sounds, no masses EXTREMITIES: no cyanosis, clubbing, edema SKIN: warm, no rashes, NEUROLOGICAL EXAMINATION: AAO x 3, no motor/sensory deficits, PSYCHIATRIC EXAMINATION: calm, cooperative, normal affect. LABORATORY DATA: Please see below. PROGNOSIS: good ACTIVITY: [As tolerated]. DIET: low fat/low cholesterol DISPOSITION: stable for discharge home DISCHARGE INSTRUCTIONS: 1. Please follow up in GI clinic in 4-6 weeks, contact information provided. ITEMS TO FOLLOWUP ON ON OUTPATIENT: 1. biopsy results from colonoscopy DISCHARGE CONDITION: [Stable]. TIME SPENT ON DISCHARGE: Greater than [30] minutes. Vital Signs/I&Os Vital Signs Date Time Temp Pulse Resp B/P (MAP) Pulse Ox O2 Delivery O2 Flow Rate FiO2 04/09/19 06:00 98.8 79 17 122/59 (80) 96 Room Air I&O- Last 24 Hours up to 6 AM 04/09/19 06:00 Intake Total 1380 ml Balance 1380 ml Laboratory Data Labs 24H Laboratory Tests 2 04/08/19 18:37: 04/08/19 18:47: 04/09/19 06:57: Nucleated Red Blood Cells % (auto) 0.0, Anion Gap 5L, Glomerular Filtration Rate > 60.0, Calcium Level 8.1L CBC/BMP Laboratory Tests 04/09/19 06:57 Microbiology Microbiology 04/08/19 Gastrointestinal Tract Panel (PCR) - Final, Complete 04/07/19 Gastrointestinal Tract Panel (PCR), Ordered Pending Discharge Medications Scheduled Famotidine (Famotidine) 20 Mg Tablet, 20 MG PO BID, (Reported) Fluticasone Propionate (Fluticasone Propionate) 16 Gm [place].susp, 1 SPRAY NA DAILY, (Reported) Fluticasone/Vilanterol (Breo Ellipta 100-25 Mcg INH) 1 Each Blst.w.dev, 1 PUFF PO DAILY, (Reported) Simvastatin (Simvastatin) 20 Mg Tablet, 20 MG PO QHS, (Reported) Scheduled PRN Loperamide HCl (Loperamide) 2 Mg Capsule, 2 MG PO BID PRN for DIARRHEA, (Repo rted) Ondansetron HCl (Ondansetron HCl) 4 Mg Tablet, 4 MG PO BID PRN for NAUSEA OR VOMITING, (Reported) Allergies Coded Allergies: Penicillins (Verified Allergy, Unknown, 02/27/19) LISANDRO VELARDE MD Apr 09, 2019 11:06
[2019-04-09] MEDS ORDERED: FLAG500T PO (12:35)
[2019-04-09] MEDS ORDERED: POTASSIUM CHLORIDE 10 MEQ SR TABLET PO ONE (13:00)
[2019-04-09 14:00] VITALS: BP 141/68
[2019-04-11 10:33] LABS: HEPATITIS B SURFACE ANTIBODY NEGATIVE (POSITIVE); HEPATITIS B SURFACE ANTIGEN NEGATIVE (NEGATIVE)
[2019-04-12 14:16] LABS: ANCA-ATYPICAL <1:20 titer (Neg:<1:20); ANTI-SACCHAROMYCES CEREV. IgA <20.0 Units (0.0-24.9); ANTI-SACCHAROMYCES CEREV. IgG <20.0 Units (0.0-24.9); CYTOPLASMIC NEUTROP AB ANCA-C <1:20 titer (Neg:<1:20); PERINUCLEAR AB ANCA-P <1:20 titer (Neg:<1:20)
== END 2019-04-09 15:17 | disposition home or self-care (01) ==
LOC: M ED 10:41 → M ED INP 10:44 → UNDOADMOB 19:29 → ENRESERVDT 04-08 13:00 → ENRESERVTM 04-08 13:00 → M MSPAV 04-08 13:37
PROVIDERS: ADMIT Internal Medicine; ATTEND Internal Medicine
DX: K92.1 Melena (principal); K29.70 Gastritis, unspecified, without bleeding; K31.89 Other diseases of stomach and duodenum; K52.9 Noninfective gastroenteritis and colitis, unspecified; R10.84 Generalized abdominal pain; E78.49 Other hyperlipidemia; J44.9 Chronic obstructive pulmonary disease, unspecified; E11.9 Type 2 diabetes mellitus without complications; D64.9 Anemia, unspecified; J30.9 Allergic rhinitis, unspecified; Z98.61 Coronary angioplasty status; Z79.899 Other long term (current) drug therapy; Z88.0 Allergy status to penicillin; Z87.891 Personal history of nicotine dependence; Z95.1 Presence of aortocoronary bypass graft
CPT/HCPCS: 36415; 43239; 43255; 45380; 74177; 80048; 80076; 83690; 85025; 85027; 85610; 85652; 85730; 86140; 86256; 86480; 86671; 86704; 86706; 86803; 86850; 86900; 86901; 87340; 87507; 88305; 96361; 96365; 96366; 96367; 96375; 96376; 99284; C9113; G0378; J1956; Q9963; Q9967

== ENCOUNTER 2019-04-22 11:55 | Inpatient (IN) | payer MEDICARE ==
[~2019-04-22] VITALS: Ht 170.2 cm; Wt 83.6 kg
[~2019-04-22 11:55] MED LIST changes: +FAMO1TAB11 PO; +FLAG500T PO; +FLUTISP; +LOPE2CAP PO; +ONDA-83 PO
[2019-04-22] MEDS ORDERED: BRONCHW PO (12:05)
[2019-04-22] MEDS ORDERED: [UNRECOGNIZED DRUG - CODE] RC (12:05)
[2019-04-22] MEDS ORDERED: PROBCAP14 PO (12:05)
[2019-04-22] MEDS ORDERED: IRON65TA2 PO (12:05)
[2019-04-22 12:55] LABS: BASO # 0.1 10^3/uL (0.0-0.2); BASO % 0.4 % (0.0-1.0); EOS # 0.6 10^3/uL (0.0-0.5); EOS % 4.3 % (0.0-3.0); HEMATOCRIT 43.7 % (42.0-52.0); HEMOGLOBIN 14.2 g/dl (13.5-17.5); LYMPH # 3.6 10^3/uL (1.5-5.0); LYMPH % 24.5 % (24.0-44.0); MEAN CORPUSCULAR HEMOGLOBIN 29.3 pg (27.0-33.0); MEAN CORPUSCULAR HGB CONC 32.5 g/dl (32.0-36.5); MEAN CORPUSCULAR VOLUME 90.3 fl (80.0-96.0); MONO # 1.8 10^3/uL (0.0-0.8); MONO % 12.2 % (0.0-5.0); NEUTROPHILS # 8.6 10^3/uL (1.5-8.5); NEUTROPHILS % 57.9 % (36.0-66.0); PLATELET COUNT, AUTOMATED 440 10^3/uL (150-450); RED BLOOD COUNT 4.84 10^6/uL (4.30-6.10); WHITE BLOOD COUNT 14.8 10^3/uL (4.0-10.0)
[2019-04-22] MEDS ORDERED: NS 1,000 ML IV ONE (13:00)
[2019-04-22] MEDS ORDERED: ISOVUE-370 76% 100ML VIAL (Q9967) As Ordered ONE (13:06)
[2019-04-22 13:24] LABS: ALBUMIN 2.9 GM/DL (3.2-5.2); BILIRUBIN,DIRECT 0.2 MG/DL (0.0-0.2); BILIRUBIN,TOTAL 0.7 MG/DL (0.2-1.0); TOTAL PROTEIN 7.9 GM/DL (6.4-8.2)
[2019-04-22] MEDS ORDERED: methylPREDNISolone INJ 125 MG/2 ML VIAL (J2930) IV ONE (13:30)
[2019-04-22] MEDS ORDERED: THERTAB56 PO (14:06)
[2019-04-22] MEDS ORDERED: BUDE3CAP PO (14:06)
--- NOTE | 2019-04-22 14:20 | REP ---
CT ABDOMEN AND PELVIS WITH IV CONTRAST: TECHNIQUE: Axial contrast enhanced images from the lung bases to the pubic symphysis using 100 mL Isovue 370 intravenous contrast material with multiplanar reformations. Comparison 04/07/2019. Visualized lung bases demonstrates no acute infiltrate. There is mild fibrotic scarring. Liver demonstrates focal fatty infiltration anteriorly. There is a subcentimeter gallstone in the gallbladder without definite gallbladder wall edema. Spleen is normal in size with no intrinsic abnormality. Adrenal glands are normal. Pancreas demonstrates no mass. Right kidney is unremarkable. There is no hydronephrosis bilaterally. There is a stable 5 cm cyst of the left kidney laterally. There is moderate atherosclerotic calcification of the abdominal aorta without aneurysm. There is no significant adenopathy although there are multiple subcentimeter mesenteric lymph nodes scattered diffusely. There is no free air or free fluid. There is again mild diffuse thickening of the wall of the colon with diffuse mucosal enhancement consistent with mild pancolitis appearing similar to the prior study of 04/07/2019. The appendix appears normal. Multiple bladder calculi are again noted. Maximum diameter is 11 mm. Otherwise bladder is not well distended and not well evaluated. Scrotal hydrocele is noted. IMPRESSION: No acute changes compared to prior study of 04/07/2019. There are again findings of mild pancolitis which appears stable. No free air or free fluid. No fluid collection. Subcentimeter gallstone in the gallbladder. Scrotal hydrocele. Multiple bladder calculi again noted. Electronically Signed by Salo Haq MD 04/26/2019 03:58 P
[2019-04-22] MEDS ORDERED: ONDANSETRON 4 MG TAB (S0181) PO PRN (14:30)
[2019-04-22] MEDS ORDERED: LOPERAMIDE 2 MG CAPLET PO PRN (14:30)
[2019-04-22 14:54] LABS: CALCIUM LEVEL 9.3 MG/DL (8.8-10.2); CREATININE FOR GFR 1.3 MG/DL (0.70-1.30); GLOMERULAR FILTRATION RATE 57.1 (>42)
--- NOTE | 2019-04-22 15:59 | REP ---
CHEST, TWO VIEWS: Two views of the chest are performed. There is no acute infiltrate. Heart is normal in size. There is mild tortuosity of the thoracic aorta. Multiple sternal wires and mediastinal clips are present. There are mild degenerative changes of the spine. IMPRESSION: No acute pulmonary disease. Electronically Signed by Salo Haq MD 04/26/2019 04:12 P
--- NOTE | 2019-04-22 16:05 | HPEPDOC ---
[facility] Medical History & Physical Date of Admission Apr 22, 2019 Date of Service: Apr 22, 2019 History and Physical CHIEF COMPLAINT: Worsening Diarrhea HISTORY OF PRESENT ILLNESS: This is a 78 year old male who presented to the ER for worsening diarrhea. He has had multiple episodes daily of loose watery stools with small blood clots and small amount of bright red blood on the toilet paper since Thursday (5-6 days). He was recently discharged from [facility] after presenting for similar symptoms. During his hospitalization he had a colonoscopy with Dr. Sanches and he was diagnosed with pancolitis with bi opsy confirming it is ulcerative colitis. Dr. Sanches started him on Budesonide outpatient which did not help him and last night he was started on Mesalamine enema, which did give him some relief for a short period of time. He also reports feeling dizzy, fatigue, nauseous without vomiting, poor appetite and mild lower abdominal pain. He has had poor oral intake since the episodes began on Thursday. During his last hospitalization, he was tested for TB as antibiologic therapy was being considered. His TB quantiferon came back positive. He has not had a chest xray in several years. He was referred outpatient to infectious disease for possible latent TB. In the ER the patient is afebrile, vitals are stable and he is asymptomatic. Abdomen/Pelvis CT showed mild pancolitis which appears stable and unchanged from his last CT on 04/07/2019. Dr. Sanches has been consulted. He will be admitted on the hospitalist service for treatment of a UC flare after failing outpatient therapy. PAST MEDICAL HISTORY: 1. Ulcerative Colitis 2. COPD 3. GERD 4. CAD s/p CABG (6 vessel) 5. Hyperlipidemia 6. Nasal polyps 7. Hx of positive TB test HOME MEDICATIONS: Please see below. ALLERGIES: Please see below PAST SURGICAL HISTORY: 1. CABG (6 vessel) 2. Nasal polypectomy 3. Cataracts 4. Colonoscopy SOCIAL HISTORY: Lives with his . He is a former smoker, he quit 30 years ago and he was a 2 pack/day for 38 years. He drinks 2 glasses of wine a night but has not had a drink in 2 months. He denies illicit drug use. FAMILY HISTORY: Mother had [place]. Father had ALS. Unknown hx for colon ca ncer. REVIEW OF SYSTEMS: Constitutional: Reports 30 lb weight loss in the last month, few episodes of night sweats, subjective fevers. Denies chills Eyes: Denies visual changes, double vision, blurry vision. Ear nose throat: Denies runny nose, sinus pain, sore throat. Cardiovascular: Denies chest pain, shortness of breath, paroxysmal nocturnal dyspnea, orthopnea, edema, or palpitations. Respiratory: Denies cough, sputum production, wheezes, hemoptysis, or shortness of breath Gastrointestinal: Reports mild lower abdominal pain, loss of appetite, nausea. Denies difficulty swallowing, vomiting, constipation, obstipation, hematemesis. Musculoskeletal: Denies joint swelling, decreased range of motion, crepitus, or new arthritis Integumentary: Denies pruritus, rashes, or lesions Neuro: Denies faint, headaches, paresthesias, anesthesias Endocrine: Denies increased appetite, tremor, palpitations, dry skin, polydipsia, polyuria, polyphagia Hematologic: Denies any anemia, purpura, or petechiae Lymphatic: Denies any new lumps or bumps anywhere PHYSICAL EXAMINATION: VITAL SIGNS: Please See Below GENERAL: Pleasant 78 year old male lying in bed in no acute distress. HEENT: Atraumatic, normocephalic, dry mucus membranes, no elevated JVD CARDIOVASCULAR: Normal S1 S2 regular rate and rhythm with no murmurs, gallops or rubs. RESPIRATORY: Clear to auscultation bilaterally except for lower lobe inspiratory rales. ABDOMINAL: Bowel sounds hyperactive in all 4 quadrants abdomen distended but soft and nontender with no palpable masses and no guarding or rebound tenderness. EXTREMITIES: No lower extremity edema bilaterally. NEUROLOGICAL: AAOx3 with no gross focal deficits. PSYCHOLOGICAL: Appropriate. LABORATORY DATA: See below. IMAGING: Abdomen/Pelvis CT impression: No acute changes compared to prior study of 04/07/2019. There are again findings of mild pancolitis which appears stable. No free air or free fluid. No fluid collection. Subcentimeter gallstone in the gallbladder. Scrotal hydrocele. Multiple bladder calculi again noted. Chest Xray: pending ASSESSMENT: This is a 78 year old male, with the pertinent hx of Ulcerative Colitis recently diagnosed inpatient, who presented for worsening diarrhea of multiple episodes with loose, watery stools with blood clots and bright red blood on toilet paper. Dr. Sanches has been consulted. He will be admitted to the hospitalist service for treatment of a UC flare after failing outpatient therapy. PLAN: 1. Diarrhea likely 2/2 recent diagnosed ulcerative colitis, unlikely infectious due to negative C. Diff testing outpatient at PCP. -patient was recently discharged after a colonoscopy with Dr. Sanches who diagnosed him with UC. -patient has failed outpatient therapy with Budesonide and Mesalamine enema. -IV fluids, advance diet as tolerated. - Zofran PRN -loperamide PRN -IV solumedrol -mesalamine enema 2. Ulcerative Colitis - Dr. Sanches has been consulted and we appreciate his input -patient was treated outpatient with Budesonide and mesalamine enema, will continue with mesalamine enema inpatient. 3. Recent Hx of positive TB quantiferon gold -We have consulted Dr. Kathleen, infectious disease and we appreciate her input. -Chest Xray AP/Lateral: negative chest xray. - does not need isolation for latent TB due to negative Chest XRay. 4. GERD -c/w Famotidine 20 mg PO BID 5. COPD -patient is on Breo Ellipta at home which is not on formulary here, will use Advair while he is inpatient. 6. CAD s/p CABG (6-vessel) w/ HLD -c/w home simvastatin 20 mg PO daily 7. Nasal Polyps -c/w home Fluticasone DVT PROPHYLAXIS: TEDS and sequentials; hold medical management due to blood in diarrhea. CODE STATUS: DNR/DNI DISPOSITION: Inpatient, expect >2 midnights. Vital Signs Vital Signs Date Time Temp Pulse Resp B/P (MAP) Pulse Ox O2 Delivery O2 Flow Rate FiO2 04/22/19 15:41 97.5 79 16 149/70 (96) 98 Room Air Laboratory Data Labs 24H Laboratory Tests 2 04/22/19 12:37: Immature Granulocyte % (Auto) 0.7, Neutrophils (%) (Auto) 57.9, Lymphocytes (%) (Auto) 24.5, Monocytes (%) (Auto) 12.2H, Eosinophils (%) (Auto) 4.3H, Basophils (%) (Auto) 0.4, Neutrophils # (Auto) 8.6H, Lymphocytes # (Auto) 3.6, Monocytes # (Auto) 1.8H, Eosinophils # (Auto) 0.6H, Basophils # (Auto) 0.1, Nucleated Red Blood Cells % (auto) 0.0, Anion Gap 8, Glomerular Filtration Rate 57.1, Calcium Level 9.3, Total Bilirubin 0.7, Direct Bilirubin 0.2, Aspartate Amino Transf (AST/SGOT) 17, Alanine Aminotransferase (ALT/SGPT) 16, Alkaline Phosphatase 67, Total Protein 7.9, Albumin 2.9L, Albumin/Globulin Ratio 0.58L, Lipase 119 04/22/19 12:38: POC Glucose (Misc Panel) 105, POC Sodium (Misc Panel) 136, POC Potassium (Misc Panel) 3.7, POC Chloride (Misc Panel) 97L, POC Total CO2 (Misc Panel) 27.0, POC Blood Urea Nitrogen (Misc Panel 12, POC Ionized Calcium (Misc Panel) 4.5, POC Creatinine (Misc Panel) 1.2, POC Hematocrit (Misc Panel) 44.0 04/22/19 12:43: POC Lactate (Misc Panel) 2.45*H CBC/BMP Laboratory Tests 04/22/19 12:37 Microbiology Microbiology 04/22/19 Blood Culture, Received Pending Home Medications Scheduled Budesonide (Budesonide EC) 3 Mg Capdr...er, 9 MG PO QPM Famotidine (Famotidine) 20 Mg Tablet, 20 MG PO BID Ferrous Sulfate (Iron) 325 Mg Tablet, 325 TAB PO DAILY Fluticasone Propionate (Fluticasone Propionate) 16 Gm [place].susp, 1 SPRAY NA DAILY Fluticasone/Vilanterol (Breo Ellipta 100-25 Mcg INH) 1 Each Blst.w.dev, 1 PUFF PO DAILY Lactobacillus Acidophilus (Probiotic) 1 Each Capsule, 1 CAP PO DAILY Mesalamine (Mesalamine) 4 Gm/60 Ml Enema, 4 MG RC QHS Multivitamin,Therapeutic (Thera) 1 Each Tablet, 1 TAB PO DAILY Simvastatin (Simvastatin) 20 Mg Tablet, 20 MG PO QHS Scheduled PRN Loperamide HCl (Loperamide) 2 Mg Capsule, 2 MG PO BID PRN for DIARRHEA Ondansetron HCl (Ondansetron HCl) 4 Mg Tablet, 4 MG PO BID PRN for NAUSEA OR VOMITING Allergies Coded Allergies: No Known Allergies (Verified Allergy, Unknown, 04/22/19) A-FIB/CHADSVASC A-FIB History Current/History of A-Fib/PAF?: No Current PO Anticoag Therapy: No LETICIA SORIANO OMS-3 Apr 22, 2019 16:05
[2019-04-22 16:38] VITALS: BP 136/67
[2019-04-22 16:43] LABS: CHOLESTEROL RISK RATIO 3.032 (<5)
[2019-04-22] MEDS: LACTOBACILLUS ACIDOPHILUS CAP (BACID) PO SCH (18:34)
[2019-04-22] MEDS: ADVAIR HFA 115/21MCG INHALER INH SCH (18:42)
[2019-04-22] MEDS: SIMVASTATIN 20 MG TAB PO SCH (20:14)
[2019-04-22] MEDS: MESALAMINE 1,000 MG SUPP PR SCH (20:14)
[2019-04-22] MEDS: FAMOTIDINE 20 MG TAB PO SCH (20:14)
[2019-04-22 22:00] VITALS: BP 115/70
[2019-04-23 06:00] VITALS: BP 126/65
[2019-04-23 06:43] LABS: HEMATOCRIT 33.1 % (42.0-52.0); MEAN CORPUSCULAR HEMOGLOBIN 29.3 pg (27.0-33.0); MEAN CORPUSCULAR HGB CONC 32.6 g/dl (32.0-36.5); MEAN CORPUSCULAR VOLUME 89.7 fl (80.0-96.0); RED BLOOD COUNT 3.69 10^6/uL (4.30-6.10); WHITE BLOOD COUNT 10.2 10^3/uL (4.0-10.0)
[2019-04-23 07:02] LABS: HEMOGLOBIN 10.8 g/dl (13.5-17.5); PLATELET COUNT, AUTOMATED 284 10^3/uL (150-450)
[2019-04-23 07:08] LABS: BLOOD UREA NITROGEN 12 MG/DL (7-18); CARBON DIOXIDE LEVEL 27 MEQ/L (21-32); CHLORIDE LEVEL 104 MEQ/L (98-107); CREATININE FOR GFR 0.85 MG/DL (0.70-1.30); GLOMERULAR FILTRATION RATE > 60.0 (>42); GLUCOSE, FASTING 129 MG/DL (70-100); SODIUM LEVEL 138 MEQ/L (136-145)
--- NOTE | 2019-04-23 09:33 | CR ---
DATE OF CONSULTATION: 04/22/2019 Asked to consult by Dr. Aranda for evaluation of latent tuberculosis in a gentleman with ulcerative colitis who will be starting TNF inhibitors. HISTORY OF PRESENT ILLNESS: Mr. Perez is a 78-year-old gentleman who presents to the emergency room for worsening diarrhea associated with some blood clots, mucus, and increased abdominal cramps. The patient was hospitalized for 48 hours in March with similar symptoms. He had a colonoscopy done by Dr. Sanches which was consistent with ulcerative colitis. He was treated with budesonide and mesalamine, enemas with some minimal improvement. He came back to the emergency room complaining of being dizzy, fatigued, nauseous without vomiting. He has poor appetite and lower abdominal cramps. The patient has lost about 30 pounds since his diarrhea started. He reports that he has had a change of bowel movement since his colonoscopy was done about a year ago <<1:08>> in March 2018. The patient was tested for latent tuberculosis as part of anticipating treatment with biologic therapy, TNF inhibitors, last admission, which came back positive. He stated that he had been told in the past that he could have been exposed to tuberculosis since he had an abnormal chest x-ray with questionable granulomas. He denies any cough or shortness of breath. He has weight loss, night sweats, but all of this in the setting of this current illness and diarrhea. CT abdomen and pelvis showed mild pancolitis, stable compared to 04/07/2019 and chest x-ray showed no active disease. The patient is admitted for ulcerative colitis treatment and started TNF inhibitors. PAST MEDICAL HISTORY: Ulcerative colitis diagnosed 04/07/2019, COPD, gastroesophageal reflux disease, coronary artery disease status post six vessel CABG, hyperlipidemia, nasal polyposis, positive QuantiFERON TB Gold. PAST SURGICAL HISTORY: CABG, nasal polypectomy, cataract surgery, colonoscopy 2018 and 2019. SOCIAL HISTORY: Lives with his . He is a former. He is an orphan. 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 He was in the between 1960 and 1963 and was in [place] and then in [place]. He does not recall any PPDs. He quit smoking about 30 years ago. He was a two pack a day for about 30 years and he drinks two glasses of wine every night that he makes himself. REVIEW OF SYSTEMS: He admits to 30-pound weight loss, a few night sweats, subjective fevers, no chills. No chest pain, shortness of breath. No cough. No pleurisy. No hemoptysis. He has no joint swelling. No rashes. No pruritus. No headache, upper or lower extremity weakness. He has decreased appetite. PHYSICAL EXAMINATION: He is a healthy looking gentleman in no acute distress. Temperature is 97.5, pulse 79, respirations 16, blood pressure 149/70, oxygen saturation 98% on room air. Heart: Normal S1, S2. No murmurs, rubs or gallops. Lungs are clear, diminished at bases but no wheezes, rales or rhonchi. Abdomen is soft, mildly tender in the lower quadrants. No rebound. No hepatosplenomegaly. Back: No CVA or lumbosacral tenderness. Extremities: No clubbing, cyanosis or edema. No calf tenderness. Neurologic: Exam normal. Motor strength normal in all extremities. Neck is supple. No JVD. No bruits. LABORATORY DATA: White count is 14.8, hemoglobin 14.2, hematocrit 43.7, platelets 440, 58% neutrophils, 24% lymphocytes, 12% monocytes. Sodium 135, potassium 4, chloride 100, bicarbonate 27, BUN 13, creatinine 1.3, glucose 97, calcium 9.3, AST 17, ALT 16, alkaline phosphatase 67, total protein 7.9, albumin 2.9, total cholesterol of 94, LDL 37. QuantiFERON TB Gold was positive on 04/08/2019, hepatitis B surface antigen, surface antibody and core IgG were negative. Hepatitis C antibody was negative. GI panel was done on 04/08/2019, was negative. Blood cultures two sets were done this admission are pending. Chest x-ray, PA and lateral, shows no acute infiltrate, normal size, multiple sternal wires and mediastinal clips. IMPRESSION: This is a 78-year-old gentleman with recent diagnosis of ulcerative colitis who has failed treatment with budesonide and mesalamine who will be started probably on TNF inhibitors. 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 The patient has a travel history to third world countries. Since there is risk of reactivation of tuberculosis with TNF inhibitors, the recommendation is to start treatment for LTBI as soon as possible. He will be treated with 4 months of rifampin and the optimal interval between starting LTBI therapy and TNF inhibitor has not been established but recent studies have suggested that no delay is necessary and treatment could be started at the same day as TNF inhibitors. PLAN: Start rifampin 600 mg by mouth daily today. The patient was advised of side effects including nausea, hepatitis, fatigue, orange discoloration of the urine and secretions. He was advised to avoid alcohol to monitor as it can cause a mild hepatitis. He was also advised that he should be vaccinated as he will be on TNF inhibitors and he will have a weaker immune system. The patient never takes flu shots, pneumonia shots, and is not up-to-date on his vaccines. I did discuss that with him somewhat but he is resistant but this needs to be further discussed with him with every provider. Thank you for consultation.
[2019-04-23] MEDS: FAMOTIDINE 20 MG TAB PO SCH ×2 (09:59→20:57)
[2019-04-23] MEDS: LACTOBACILLUS ACIDOPHILUS CAP (BACID) PO SCH ×2 (09:59→18:29)
--- NOTE | 2019-04-23 10:02 | IPNPDOC ---
Subjective Date Seen The patient was seen on 04/23/19. Subjective Chief Complaint/HPI Seen and examined at bedside, no specific complaints, denies fever/chills, n/v, mild abdominal pain. General: Reports: Normal Appetite; Denies: Chills, Night Sweats, Fatigue, Malaise Constitutional: Denies: Chills, Fever, Night Sweats Eyes: Denies: Pain, Vision change ENT: Denies: Head Aches, Ear Pain, Dysphagia Skin: Denies: Rash, Lesions, Breakdown Pulmonary: Denies: Dyspnea, Cough Cardiovascular: Denies: Chest Pain, Palpitations, Orthopnea, Paroxysmal Noc. Dyspnea, Lt Headedness Gastrointestinal: Denies: Nausea, Vomiting, Abdominal Pain, Diarrhea, Constipation Genitourinary: Denies: Dysuria, Frequency, Incontinence, Retention Hematologic: Denies: Bruising, Bleeding Excessively Musculoskeletal: Denies: Neck Pain, Back Pain, Joint Pain, Muscle Pain, Spasms Neurological: Denies: Weakness, Numbness, Change in speech, Confusion Psych: Reports: Mood Normal; Denies: Depression, Memory Issues Objective Physical Examination General Exam: Positive: Alert, No Acute Distress Eye Exam: Positive: PERRLA, Conjunctiva & lids normal, EOMI; Negative: Sclera icteric ENT Exam: Positive: Atraumatic, Mucous membr. moist/pink, Pharynx Normal Neck Exam: Positive: Supple; Negative: JVD, thyromegaly Chest Exam: Positive: Clear to auscultation, Normal air movement Heart Exam: Positive: Rate Normal, Regular Rhythm, Normal S1, Normal S2; Negative: Murmurs, Rubs Telemetry: Positive: No significant arrhythmia Abdomen Exam: Positive: Normal bowel sounds, Soft; Negative: Tenderness, Hepatospenomegaly Male Exam: Positive: Normal Genital Exam Extremity Exam: Positive: Normal pulses; Negative: Clubbing, Cyanosis, Edema Skin Exam: Positive: Nl turgor and temperature; Negative: Rash, Breakdown Neuro Exam: Positive: Normal Gait, Normal Speech, Cranial Nerves 3-12 NL, Reflexes 2+ Psych Exam: Positive: Mental status NL, Mood NL, Oriented x 3 Assessment /Plan Assessment 1. UC flare - recent colonoscopy with Dr. Sanches with biopsy positive UC. - was on outpatient budesone and mesalamine enema. - on IV steroids, mesalamine enema, IVF. - plan for Humira, will d/w GI. 2. latent TB - positive quantiferon gold, negative CXR. - ID Dr. Kathleen following. - plan to start rifampin. 3. GERD - PPI. 4. COPD - continue inhalers. 5. HLD - simvastatin. 6. anemia - GI loss, monitor. - transfuse for Hgb<7. DVT PROPHYLAXIS: TEDS/SCD's. Plan/VTE VTE Prophylaxis Ordered?: Yes VS, I&O, 24H, Fishbone Vital Signs/I&O Vital Signs Date Time Temp Pulse Resp B/P (MAP) Pulse Ox O2 Delivery O2 Flow Rate FiO2 04/23/19 06:00 97.8 64 18 126/65 (85) 97 Room Air I&O- Last 24 Hours up to 6 AM 04/23/19 06:00 Intake Total 1805 ml Output Total 250 ml Balance 1555 ml Laboratory Data 24H LABS Laboratory Tests 2 04/22/19 12:37: Immature Granulocyte % (Auto) 0.7, Neutrophils (%) (Auto) 57.9, Lymphocytes (%) (Auto) 24.5, Monocytes (%) (Auto) 12.2H, Eosinophils (%) (Auto) 4.3H, Basophils (%) (Auto) 0.4, Neutrophils # (Auto) 8.6H, Lymphocytes # (Auto) 3.6, Monocytes # (Auto) 1.8H, Eosinophils # (Auto) 0.6H, Basophils # (Auto) 0.1, Nucleated Red Blood Cells % (auto) 0.0, Anion Gap 8, Glomerular Filtration Rate 57.1, Calcium Level 9.3, Total Bilirubin 0.7, Direct Bilirubin 0.2, Aspartate Amino Transf (AST/SGOT) 17, Alanine Aminotransferase (ALT/SGPT) 16, Alkaline Phosphatase 67, Total Protein 7.9, Albumin 2.9L, Albumin/Globulin Ratio 0.58L, Triglycerides Level 128, Total Cholesterol 94, LDL Cholesterol 37, Non-HDL Cholesterol (LDL + VLDL) 63, Total HDL Cholesterol 31L, Cholesterol/HDL Ratio 3.032, Lipase 119 04/22/19 12:38: POC Glucose (Misc Panel) 105, POC Sodium (Misc Panel) 136, POC Potassium (Misc Panel) 3.7, POC Chloride (Misc Panel) 97L, POC Total CO2 (Misc Panel) 27.0, POC Blood Urea Nitrogen (Misc Panel 12, POC Ionized Calcium (Misc Panel) 4.5, POC Creatinine (Misc Panel) 1.2, POC Hematocrit (Misc Panel) 44.0 04/22/19 12:43: POC Lactate (Misc Panel) 2.45*H 04/22/19 16:13: Lactic Acid Level 1.0 04/23/19 06:15: Nucleated Red Blood Cells % (auto) 0.0, Anion Gap 7L, Glomerular Filtration Rate > 60.0, Calcium Level 8.0L CBC/BMP Laboratory Tests 04/22/19 12:37 04/23/19 06:15 Microbiology Microbiology 04/22/19 Blood Culture, Received Pending 04/22/19 Blood Culture, Received Pending LISANDRO VELARDE MD Apr 23, 2019 10:02
[2019-04-23] MEDS: ADVAIR HFA 115/21MCG INHALER INH SCH ×2 (11:20→18:19)
[2019-04-23 14:00] VITALS: BP 118/58
[2019-04-23] MEDS: FLUTICASONE PROP 0.05% NASAL SPRAY 16 GM (FLONASE) SCH (18:29)
[2019-04-23] MEDS: SIMVASTATIN 20 MG TAB PO SCH (20:58)
[2019-04-23] MEDS: MESALAMINE 1,000 MG SUPP PR SCH (20:58)
[2019-04-23 22:00] VITALS: BP 122/65
[2019-04-24 06:00] VITALS: BP 147/73
[2019-04-24 06:39] LABS: MEAN CORPUSCULAR HEMOGLOBIN 29.5 pg (27.0-33.0); MEAN CORPUSCULAR HGB CONC 32.4 g/dl (32.0-36.5); MEAN CORPUSCULAR VOLUME 91.2 fl (80.0-96.0); PLATELET COUNT, AUTOMATED 266 10^3/uL (150-450); RED BLOOD COUNT 3.73 10^6/uL (4.30-6.10); WHITE BLOOD COUNT 10.5 10^3/uL (4.0-10.0)
[2019-04-24 06:59] LABS: BLOOD UREA NITROGEN 9 MG/DL (7-18); CALCIUM LEVEL 8.1 MG/DL (8.8-10.2); CARBON DIOXIDE LEVEL 29 MEQ/L (21-32); CHLORIDE LEVEL 103 MEQ/L (98-107); CREATININE FOR GFR 0.96 MG/DL (0.70-1.30); GLOMERULAR FILTRATION RATE > 60.0 (>42); GLUCOSE, FASTING 100 MG/DL (70-100); POTASSIUM SERUM 3.5 MEQ/L (3.5-5.1); SODIUM LEVEL 136 MEQ/L (136-145)
[2019-04-24] MEDS: ADVAIR HFA 115/21MCG INHALER INH SCH ×2 (07:55→19:59)
[2019-04-24] MEDS: FLUTICASONE PROP 0.05% NASAL SPRAY 16 GM (FLONASE) SCH (09:24)
[2019-04-24] MEDS: LACTOBACILLUS ACIDOPHILUS CAP (BACID) PO SCH ×2 (09:24→18:00)
[2019-04-24] MEDS: FAMOTIDINE 20 MG TAB PO SCH ×2 (09:24→19:45)
--- NOTE | 2019-04-24 09:30 | IPNPDOC ---
Subjective Date Seen The patient was seen on 04/24/19. Subjective Chief Complaint/HPI Seen and examined at bedside, c/o abdominal cramping, watery diarrhea, unchanged. General: Reports: Normal Appetite; Denies: Chills, Night Sweats, Fatigue, Malaise Constitutional: Denies: Chills, Fever, Night Sweats Eyes: Denies: Pain, Vision change ENT: Denies: Head Aches, Ear Pain, Dysphagia Skin: Denies: Rash, Lesions, Breakdown Pulmonary: Denies: Dyspnea, Cough Cardiovascular: Denies: Chest Pain, Palpitations, Orthopnea, Paroxysmal Noc. Dyspnea, Lt Headedness Gastrointestinal: Reports: Abdominal Pain, Diarrhea; Denies: Nausea, Vomiting, Constipation Genitourinary: Denies: Dysuria, Frequency, Incontinence, Retention Hematologic: Denies: Bruising, Bleeding Excessively Musculoskeletal: Denies: Neck Pain, Back Pain, Joint Pain, Muscle Pain, Spasms Neurological: Denies: Weakness, Numbness, Change in speech, Confusion Psych: Reports: Mood Normal; Denies: Depression, Memory Issues Objective Physical Examination General Exam: Positive: Alert, No Acute Distress Eye Exam: Positive: PERRLA, Conjunctiva & lids normal, EOMI; Negative: Sclera icteric ENT Exam: Positive: Atraumatic, Mucous membr. moist/pink, Pharynx Normal Neck Exam: Positive: Supple; Negative: JVD, thyromegaly Chest Exam: Positive: Clear to auscultation, Normal air movement Heart Exam: Positive: Rate Normal, Regular Rhythm, Normal S1, Normal S2; Negative: Murmurs, Rubs Telemetry: Positive: No significant arrhythmia Abdomen Exam: Positive: Normal bowel sounds, Soft, Tenderness (mild tenderness b/l LQ); Negative: Hepatospenomegaly Male Exam: Positive: Normal Genital Exam Extremity Exam: Positive: Normal pulses; Negative: Clubbing, Cyanosis, Edema Skin Exam: Positive: Nl turgor and temperature; Negative: Rash, Breakdown Neuro Exam: Positive: Normal Gait, Normal Speech, Cranial Nerves 3-12 NL, Reflexes 2+ Psych Exam: Positive: Mental status NL, Mood NL, Oriented x 3 Assessment /Plan Assessment 1. UC flare - recent colonoscopy with Dr. Sanches with biopsy positive UC. - was on outpatient budesone and mesalamine enema. - continue mesalamine enema, IVF, IV steroids. - plan for Humira, discussed with GI, per discussion with pharmacy today unclear if Humira is available to start, will need to speak to head pharmacist Regina on 04/24. - if Humira is unavailable in the hospital, patient can be discharged when medically clear and this can be started as an outpatient with GI follow up. 2. latent TB - positive quantiferon gold, negative CXR. - Seen by LATHA Kathleen, on rifampin. 3. GERD - PPI. 4. COPD - continue inhalers. 5. HLD - simvastatin. 6. anemia - GI loss, monitor. - transfuse for Hgb<7. DVT PROPHYLAXIS: TEDS/SCD's. Plan/VTE VTE Prophylaxis Ordered?: Yes VS, I&O, 24H, Fishbone Vital Signs/I&O Vital Signs Date Time Temp Pulse Resp B/P (MAP) Pulse Ox O2 Delivery O2 Flow Rate FiO2 04/24/19 06:00 98.8 83 20 147/73 (97) 96 04/23/19 14:00 Room Air I&O- Last 24 Hours up to 6 AM 04/24/19 06:00 Intake Total 1770 ml Output Total 1 ml Balance 1769 ml Laboratory Data 24H LABS Laboratory Tests 2 04/24/19 05:54: Nucleated Red Blood Cells % (auto) 0.0, Anion Gap 4L, Glomerular Filtration Rate > 60.0, Calcium Level 8.1L CBC/BMP Laboratory Tests 04/24/19 05:54 Microbiology Microbiology 04/22/19 Blood Culture - Preliminary, Resulted No growth after 24 hours . All specim... 04/22/19 Blood Culture - Preliminary, Resulted No growth after 24 hours . All specim... LISANDRO VELARDE MD Apr 24, 2019 09:30
--- NOTE | 2019-04-24 12:46 | IPNPDOC ---
Date Seen The patient was seen on 04/22/19. and discssion with pharmacy on 04/23/2019 Progress Note Interval history: 78 year old male patient with HLD, COPD, CAD s/p CABG, who was initially seen by me in GI clinic on 03/25/2019, for chronic diarrhea, with blood in stools, abdominal pain and possible colitis on CT scan, subsequently had work up inclduing Colonoscopy which confirmed Ulcerative pancolitis, was started on oral budesonide and rectal mesalamine, which unfortunately did not control the symptoms and patient constinued to have bloody diarrhea with inability to tolerate oral diet. So patient was hospitalized for the above symptoms and notcing generalized weakness and dehydration. As patient was tested positive for Quanteferon, ID was consulted. As per the discussion with patient and his , patient wanted to take Humira for his UC and insurance approval is in progress in clinic. Patient examined on day of hospitalization and he reported some improvement in symptoms. He also reported some imporvement in his appetite and his diet was advanced as tolerated. Exam: Vitals: reviewed General: Alert and oriented x 3, not in distress Abdomen: non-distended, no surgical scars, soft, non-tender, no palpable masses, normal bowel sounds heard. Labs: reviewed. Imaging: reviewed. Impression: -- Acute flare up of severe Ulcerative pancolitis currently symptoms improving with IV steroids and rectal mesalamine enema. -- Positive Quanteferon -- suspect latent TB due to prior h/o travel outside [place]. Recommendations: -- Patient educated about the test results, possible differential diagnoses and All questions answered. -- Monitor and correct electrolyte and IV hydration as needed. -- Patient is already started on therapy for latent TB as per ID recommendations. -- Discussed with on-call pharmacy and unclear if the inpatient first dose humira is available. Will need to confirm with pharmacy again on Thursday. In the meanwhile patient will be treated with IV steroids and rectal mesalamine enemas. -- If the inpatient Humira is available, patient to get 160 mg Subcutaneous for first dose for UC and then to be followed in outpatient for subsequent dose of 80 mg at day 15 and there after 40 mg every other week. Will continue with tapering course of oral steroids (starting with 40 mg and tapered over 3-4 weeks) and rectal mesalamine. -- If Inpatient humira is not available patient to be discharged when all clinical symptoms are controlled with IV steroids and then followed with oral steroid taper with prednisone for atleast 4 weeks and rectal mesalamine. Recommend patient to not resume the home budesonide and will obtain Humira as outpatient. Plan of care discussed with patient , his and primary team. Patient verbalized understanding and agreed with the plan. VS, I&O, 24H, Fishbone Laboratory Data CBC/BMP Laboratory Tests 04/24/19 05:54 TORI EGAN MD Apr 24, 2019 12:46
[2019-04-24 14:00] VITALS: BP 104/65
[2019-04-24] MEDS ORDERED: MORPHINE 2 MG/ML 1ML VIAL (J2270) IV PRN (17:00)
[2019-04-24] MEDS: methylPREDNISolone INJ 125 MG/2 ML VIAL (J2930) IV SCH (17:15)
[2019-04-24] MEDS: MESALAMINE 1,000 MG SUPP PR SCH (19:46)
[2019-04-24] MEDS: SIMVASTATIN 20 MG TAB PO SCH (19:46)
[2019-04-24 22:00] VITALS: BP 126/63
[2019-04-25] MEDS: methylPREDNISolone INJ 125 MG/2 ML VIAL (J2930) IV SCH (05:20)
[2019-04-25 06:00] VITALS: BP 127/85
[2019-04-25 06:41] LABS: HEMATOCRIT 34.5 % (42.0-52.0); MEAN CORPUSCULAR HEMOGLOBIN 29.3 pg (27.0-33.0); MEAN CORPUSCULAR HGB CONC 31.9 g/dl (32.0-36.5); PLATELET COUNT, AUTOMATED 248 10^3/uL (150-450); RED BLOOD COUNT 3.75 10^6/uL (4.30-6.10); WHITE BLOOD COUNT 9.1 10^3/uL (4.0-10.0)
[2019-04-25 07:17] LABS: BLOOD UREA NITROGEN 6 MG/DL (7-18); CALCIUM LEVEL 8.6 MG/DL (8.8-10.2); CARBON DIOXIDE LEVEL 27 MEQ/L (21-32); CHLORIDE LEVEL 104 MEQ/L (98-107); CREATININE FOR GFR 0.85 MG/DL (0.70-1.30); GLOMERULAR FILTRATION RATE > 60.0 (>42); GLUCOSE, FASTING 108 MG/DL (70-100); POTASSIUM SERUM 3.9 MEQ/L (3.5-5.1); SODIUM LEVEL 136 MEQ/L (136-145)
[2019-04-25] MEDS: ADVAIR HFA 115/21MCG INHALER INH SCH ×2 (07:44→20:11)
[2019-04-25] MEDS: FLUTICASONE PROP 0.05% NASAL SPRAY 16 GM (FLONASE) SCH (08:17)
[2019-04-25] MEDS: FAMOTIDINE 20 MG TAB PO SCH ×2 (08:18→22:23)
[2019-04-25] MEDS: LACTOBACILLUS ACIDOPHILUS CAP (BACID) PO SCH ×2 (08:18→17:41)
[2019-04-25] MEDS ORDERED: [UNRECOGNIZED DRUG - REMARK] SC ONE (12:00)
[2019-04-25 14:00] VITALS: BP 134/67
--- NOTE | 2019-04-25 14:14 | IPNPDOC ---
Date Seen The patient was seen on 04/25/19. Progress Note SUBJECTIVE: Patient was seen and examined this morning bedside. He states he is still having bloody, loose, watery bowel movements with the last one being this AM. He also still lacks an appetite and has not been eating majority of his meals. Other patient denied fever, chills, headaches, lightheadedness, cough, chest pain, shortness of breath, nausea and vomiting. OBJECTIVE PHYSICAL EXAMINATION: VITAL SIGNS: Please see below. GENERAL: Pleasant 79 year old male sitting up in bed, in no acute distress. HEENT: Atraumatic, normocephalic, moist mucus membranes, no elevated JVD. CARDIOVASCULAR: Normal S1 S2 regular rate and rhythm with no murmurs, gallops or rubs. RESPIRATORY: Clear to auscultation bilaterally with no wheezes, rhonchi or rales. ABDOMINAL: Bowel sounds present abdomen soft, mildly distended and nontender. No palpable masses, guarding or rebound tenderness. EXTREMITIES: No lower extremity edema bilaterally. NEUROLOGICAL: AOx3, no gross focal deficits. PSYCHOLOGICAL: Appropriate. LABORATORY DATA, MICROBIOLOGY: Please see below. IMAGING STUDIES: Abdomen/Pelvis CT impression: No acute changes compared to prior study of 04/07/2019. There are again findings of mild pancolitis which appears stable. No free air or free fluid. No fluid collection. Subcentimeter gallstone in the gallbladder. Scrotal hydrocele. Multiple bladder calculi again noted. Chest Xray impression: No acute pulmonary disease. ASSESSMENT: This is a 79 year old male, with the pertinent hx of Ulcerative Colitis recently diagnosed inpatient, who presented for worsening diarrhea of multiple episodes with loose, watery stools with blood clots and bright red blood on toilet paper. He was admitted to the hospitalist service for treatment of a UC flare after failing outpatient therapy. PLAN: 1. UC flare -Patient was recently d/c after a colonoscopy with Dr. Sanches, who diagnosed him with Ulcerative Pancolitis. He failed outpatient therapy with Budesonide and Mesalamine enema. -Humeria 160 mg subcutaneous injection x1 today, he will receive another injection of 80 mg in [address] Sanches. -c/w IV solumedrol. Patient will be discharged on an oral steroid taper over 3-[address] Sanches. -c/w Mesalamine enema -c/w Zofran PRN -c/w Loperamide PRN 2. Latent TB -Patient had a positive quantiferon gold on last admission with a negative chest xray -ID was consulted and we appreciated their input. -c/w Rifampin 300 PO daily 3. GERD -c/w Famotidine 20 mg PO BID 6. COPD -patient is on Breo Ellipta at home which is not on formulary here, will use Advair while he is inpatient. 7. CAD s/p CABG (6-vessel) w/ HLD -c/w home simvastatin 20 mg PO daily 8. Nasal Polyps -c/w home Fluticasone DVT prophylaxis: TEDS and sequentials DISPOSITION: Pending Humeria injection today and tolerating diet, likely discharge tomorrow. VS, I&O, 24H, Fishbone Vital Signs/I&O Vital Signs Date Time Temp Pulse Resp B/P (MAP) Pulse Ox O2 Delivery O2 Flow Rate FiO2 04/25/19 06:00 96.3 68 18 127/85 (99) 96 04/24/19 17:16 Room Air I&O- Last 24 Hours up to 6 AM 04/25/19 06:00 Intake Total 1170 ml Output Total 0 ml Balance 1170 ml Laboratory Data 24H LABS Laboratory Tests 2 04/25/19 06:06: Nucleated Red Blood Cells % (auto) 0.0, Anion Gap 5L, Glomerular Filtration Rate > 60.0, Calcium Level 8.6L CBC/BMP Laboratory Tests 04/25/19 06:06 Microbiology Microbiology 04/22/19 Blood Culture - Preliminary, Resulted No Growth after 48 hours. All Specime... 04/22/19 Blood Culture - Preliminary, Resulted No Growth after 72 hours. All specime... GME ATTESTATION GME ATTESTATION My faculty preceptor for this patient encounter was physically present during the encounter and was fully available. All aspects of the patient interview, examination, medical decision making process, and medical care plan development were reviewed and approved by the faculty preceptor. The faculty preceptor is aware and concurs with the plan as stated in the body of this note and will attest to such by his/her cosignature. ATTENDING NOTE Patient was seen and examined by me this morning with the residents. Agree with the above assessment and plan LETICIA SORIANO-3 Apr 25, 2019 14:14 CHRISTIANO ROBERTS MD Apr 28, 2019 12:51
[2019-04-25 22:00] VITALS: BP 137/67
[2019-04-25] MEDS: SIMVASTATIN 20 MG TAB PO SCH (22:23)
[2019-04-25] MEDS: MESALAMINE 1,000 MG SUPP PR SCH (22:23)
[2019-04-26 06:00] VITALS: BP 133/68
[2019-04-26 07:01] LABS: HEMATOCRIT 33.9 % (42.0-52.0); HEMOGLOBIN 10.9 g/dl (13.5-17.5); MEAN CORPUSCULAR HEMOGLOBIN 29.4 pg (27.0-33.0); MEAN CORPUSCULAR HGB CONC 32.2 g/dl (32.0-36.5); MEAN CORPUSCULAR VOLUME 91.4 fl (80.0-96.0); PLATELET COUNT, AUTOMATED 258 10^3/uL (150-450); RED BLOOD COUNT 3.71 10^6/uL (4.30-6.10); WHITE BLOOD COUNT 8.6 10^3/uL (4.0-10.0)
[2019-04-26 07:22] LABS: BLOOD UREA NITROGEN 5 MG/DL (7-18); CALCIUM LEVEL 8.4 MG/DL (8.8-10.2); CARBON DIOXIDE LEVEL 28 MEQ/L (21-32); CHLORIDE LEVEL 106 MEQ/L (98-107); CREATININE FOR GFR 0.88 MG/DL (0.70-1.30); GLOMERULAR FILTRATION RATE > 60.0 (>42); GLUCOSE, FASTING 103 MG/DL (70-100); POTASSIUM SERUM 3.4 MEQ/L (3.5-5.1); SODIUM LEVEL 140 MEQ/L (136-145)
[2019-04-26] MEDS ORDERED: POTASSIUM CHLORIDE 10 MEQ SR TABLET PO ONE (08:00)
[2019-04-26] MEDS: ADVAIR HFA 115/21MCG INHALER INH SCH ×2 (08:01→20:48)
[2019-04-26] MEDS: FLUTICASONE PROP 0.05% NASAL SPRAY 16 GM (FLONASE) SCH (08:07)
[2019-04-26] MEDS: FAMOTIDINE 20 MG TAB PO SCH ×2 (08:07→21:41)
[2019-04-26] MEDS: methylPREDNISolone INJ 125 MG/2 ML VIAL (J2930) IV SCH (08:07)
[2019-04-26] MEDS: LACTOBACILLUS ACIDOPHILUS CAP (BACID) PO SCH ×2 (08:07→17:56)
--- NOTE | 2019-04-26 13:26 | IPN ---
DATE: 04/25/2019 Mr. Perez seems to be doing great. He was treated with Solu-Medrol and adalimumab and his abdominal pain has markedly improved, his diarrhea has decreased. He has no fever or chills. No nausea, vomiting. He has tolerated rifampin 600 mg daily. Other than discolored urine, he has no other symptoms. LABORATORY DATA: White count 9.1, hemoglobin 11, hematocrit 34.5, platelets 248. Sodium 136, potassium 3.9, chloride 104, bicarb 27, BUN 6, creatinine 0.85, glucose 108, calcium 8.6. Blood cultures two sets were negative. PHYSICAL EXAMINATION: Temperature is 98.6, pulse 72, respirations 20, blood pressure 134/67, O2 sat 98% on room air. Heart normal S1-S2. No murmurs, rubs or gallops. Lungs are clear. No wheezes, rales or rhonchi. Abdomen soft, nontender. Extremities no edema. IMPRESSION: 1. Latent tuberculosis on p.o. rifampin, tolerating well. The patient will be treated for a total of 4 months. 2. Ulcerative colitis on methylprednisolone and adalimumab 160 mg one dose by mouth was given on 04/24. PLAN: Continue rifampin 600 mg daily. The patient to followup in my office in 2-3 weeks for treatment of latent TB. Chest x-ray done on 04/22/2019 showed no acute pulmonary disease.
--- NOTE | 2019-04-26 15:53 | IPNPDOC ---
Date Seen The patient was seen on 04/26/19. Progress Note SUBJECTIVE: Patient was seen and examined this morning. Unfortunately the patient has had multiple episodes of diarrhea overnight. He states that some of them were bloody. He otherwise is feeling ok. OBJECTIVE PHYSICAL EXAMINATION: VITAL SIGNS: Please see below. GENERAL: Patient is awake, alert, and oriented. He does not appear to be in any acute distress. He is lying comfortably in his bed HEENT: Atraumatic, normocephalic. Eyes are nonicteric. Trachea is midline. CARDIOVASCULAR: Normal S1, S2. Regular rate and rhythm. No clicks, rubs, or murmurs RESPIRATORY: Clear vesicular breath sounds bilaterally. No wheezes, rhonchi, or rales. Good respiratory effort ABDOMINAL: Soft, nondistended. Nontender. No rebound tenderness or guarding. Normoactive bowel sounds throughout EXTREMITIES: No edema. Full and equal pulses in bilateral lower extremities NEUROLOGICAL: No focal neurological deficits PSYCHOLOGICAL: Mood and affect are appropriate LABORATORY DATA, IMAGING STUDIES, MICROBIOLOGY: Please see below. DVT prophylaxis ordered?: TEDs and Sequentials ASSESSMENT AND PLAN: Patient is a 79 year old male who presented with multiple episodes of bloody diarrhea secondary to his ulcerative colitis. He has been seen by Gastroenterology and has been started on prednisone and recently received Humira. Patient was planned for discharge with follow-up with gastroenterology however has developed diarrhea overnight PROBLEMS: 1. Pancolitis secondary to Ulcerative Colitis Flare -Patient has failed outpatient therapy with Budesonide and Mesalamine. -Patient has received his first Humira shot yesterday. Patient will receive his second shot 14 days from today. -Patient has had multiple ~7 episodes of watery and blood tinged diarrhea last night. Will continue with IV solumedrol 60mg daily. Patient will be tapered of 25 days starting on discharge 2. Latent TB -Patient has had a positive Quantiferon gold with negative chest x-ray -Patient was started on Rifampin 600 mg PO daily per ID. Consultation and recommendations are greatly appreciated 3. GERD - Famotidine 20 mg PO BID 6. COPD -Continue with Advair. Currently stable. 7. CAD s/p CABG (6-vessel) w/ HLD - simvastatin 20 mg PO daily 8. Nasal Polyps - Fluticasone DVT prophylaxis: TEDS and sequentials DISPOSITION: Patient will likely be discharged in 24-48 hours pending resolution of his diarrhea VS, I&O, 24H, Fishbone Vital Signs/I&O Vital Signs Date Time Temp Pulse Resp B/P (MAP) Pulse Ox O2 Delivery O2 Flow Rate FiO2 04/26/19 14:00 98.6 73 18 97 Room Air 04/26/19 06:00 133/68 (89) I&O- Last 24 Hours up to 6 AM 04/26/19 06:00 Intake Total 1525 ml Output Total 0 ml Balance 1525 ml Laboratory Data 24H LABS Laboratory Tests 2 04/26/19 06:23: Nucleated Red Blood Cells % (auto) 0.0, Anion Gap 6L, Glomerular Filtration Rate > 60.0, Calcium Level 8.4L CBC/BMP Laboratory Tests 04/26/19 06:23 Microbiology Microbiology 04/22/19 Blood Culture - Preliminary, Resulted No Growth after 72 hours. All specime... 04/22/19 Blood Culture - Preliminary, Resulted No Growth after 72 hours. All specime... GME ATTESTATION GME ATTESTATION My faculty preceptor for this patient encounter was physically present during the encounter and was fully available. All aspects of the patient interview, examination, medical decision making process, and medical care plan development were reviewed and approved by the faculty preceptor. The faculty preceptor is aware and concurs with the plan as stated in the body of this note and will attest to such by his/her cosignature. ATTENDING NOTE Patient was seen and examined by me this morning with the residents. Agree with the above assessment and plan GIO GIORDANO DO Apr 26, 2019 15:53 CHRISTIANO ROBERTS MD Apr 28, 2019 12:59
[2019-04-26] MEDS: SIMVASTATIN 20 MG TAB PO SCH (21:41)
[2019-04-26] MEDS: MESALAMINE 1,000 MG SUPP PR SCH (21:45)
[2019-04-26 22:00] VITALS: BP 124/68
[2019-04-27 06:00] VITALS: BP 121/66
[2019-04-27 06:55] LABS: HEMATOCRIT 35.4 % (42.0-52.0); HEMOGLOBIN 11.5 g/dl (13.5-17.5); MEAN CORPUSCULAR HEMOGLOBIN 29.5 pg (27.0-33.0); MEAN CORPUSCULAR HGB CONC 32.5 g/dl (32.0-36.5); MEAN CORPUSCULAR VOLUME 90.8 fl (80.0-96.0); PLATELET COUNT, AUTOMATED 225 10^3/uL (150-450); WHITE BLOOD COUNT 8.7 10^3/uL (4.0-10.0)
[2019-04-27 07:21] LABS: BLOOD UREA NITROGEN 6 MG/DL (7-18); CALCIUM LEVEL 8.4 MG/DL (8.8-10.2); CARBON DIOXIDE LEVEL 26 MEQ/L (21-32); CHLORIDE LEVEL 106 MEQ/L (98-107); CREATININE FOR GFR 0.94 MG/DL (0.70-1.30); GLOMERULAR FILTRATION RATE > 60.0 (>42); GLUCOSE, FASTING 115 MG/DL (70-100); POTASSIUM SERUM 3.8 MEQ/L (3.5-5.1); SODIUM LEVEL 137 MEQ/L (136-145)
[2019-04-27] MEDS: ADVAIR HFA 115/21MCG INHALER INH SCH (07:54)
[2019-04-27] MEDS: FLUTICASONE PROP 0.05% NASAL SPRAY 16 GM (FLONASE) SCH (09:00)
[2019-04-27] MEDS: LACTOBACILLUS ACIDOPHILUS CAP (BACID) PO SCH (10:17)
[2019-04-27] MEDS: FAMOTIDINE 20 MG TAB PO SCH (10:17)
[2019-04-27] MEDS: methylPREDNISolone INJ 125 MG/2 ML VIAL (J2930) IV SCH (10:18)
[2019-04-27] MEDS ORDERED: PRED10TA2 PO (11:25)
[2019-04-27] MEDS ORDERED: MESA50SU PR (11:25)
[2019-04-27] MEDS ORDERED: RIFA30CA PO (11:25)
--- NOTE | 2019-04-27 12:06 | DS.PDOC ---
Discharge Summary General Date of Admission Apr 22, 2019 at 13:58 Date of Discharge Apr 27, 2019 Discharge Summary DISCHARGE DIAGNOSIS: Ulcerative Colitis SECONDARY DIAGNOSIS: 1. Latent TB 2. COPD 3. CAD s/p CABG (6 vessel) 4. Hyperlipidemia 5. GERD 6. Nasal Polyps PROCEDURES PERFORMED DURING STAY: None. CONSULTANTS: Dr. Sanches, gastroenterology; Dr. Kahtleen, infectious disease HOSPITAL COURSE: This is a 78 year old male who presented to the ER for worsening multiple episodes daily of loose watery stools with small blood clots and small amount of bright red blood on the toilet paper for about 5-6 days before presentation. He had recently been discharged from [facility] after presenting with similar symptoms where he had been diagnosed with ulcerative pancolitis after a colonoscopy with Dr. Sanches. Outpatient he was started Budesonide which did not improve symptoms and then started on Mesalamine enema, which gave some relief. On admission he also reported dizziness, fatigue, nausea without vomiting and poor appetite and oral intake. Patient also had a positive quantiferon gold test on last discharge with a negative chest xray on admission. Abdomen/Pelvis CT on admission showed no changes to the pancolitis from last admission. During hospitalization Dr. Sanches was consulted and patient was started on IV steroids and fluids and received the first injection for Humeria. Dr. Kathleen from infectious disease was consulted for his latent TB and he was started on Rifampin 600 mg daily. Patient was discharged once the bloody bowel movements stopped. Patient will be discharged on a steroid taper over a month. He will need to follow up with Dr. Sanches outpatient as scheduled. He will also need to follow up with Dr. Kathleen outpatient in 2-3 weeks. He will follow up with his PCP in 7-10 days. DISCHARGE MEDICATIONS: Please see below. ALLERGIES: Please see below. SUBJECTIVE: Patient was seen and examined this morning. He states he has had no bloody BM today. Otherwise denies chest pain, shortness of breath, cough, abdominal pain, diarrhea, and constipation. OBJECTIVE: PHYSICAL EXAMINATION: VITAL SIGNS: Please see below. GENERAL: Pleasant 78 year old male sitting up in bed, in no acute distress. HEENT: Atraumatic, normocephalic, moist mucus membranes, no elevated JVD. CARDIOVASCULAR: Normal S1 S2 regular rate and rhythm with no murmurs, gallops or rubs. RESPIRATORY: Clear to auscultation bilaterally with no wheezes, rhonchi or rales. ABDOMINAL: Bowel sounds present in all 4 quadrants, abdomen soft, mildly distended and nontender. EXTREMITIES: No lower extremity edema bilaterally. NEUROLOGICAL: AOx3 no focal gross deficits. PSYCHOLOGICAL: Appropriate. LABORATORY DATA: Please see below. IMAGING STUDIES: Abdomen/Pelvis CT impression: No acute changes compared to prior study of 04/07/2019. There are again findings of mild pancolitis which appears stable. No free air or free fluid. No fluid collection. Subcentimeter gallstone in the gallbladder. Scrotal hydrocele. Multiple bladder calculi again noted. Chest Xray: pending DVT prophylaxis ordered: TEDS and sequentials. DISPOSITION: Home. DISCHARGE CONDITION: Improved and Stable. DISCHARGE INSTRUCTIONS: 1. Follow up with PCP in 7-10 days. 2. Follow up with Dr. Sanches, gastroenterology, outpatient as scheduled. 3. Take SECOND 80mg Humira shot in 13 days. Followed by 40mg Humira shot every other week 4. Follow up with Dr. Kathleen, infectious disease, outpatient as scheduled in 2-3 weeks for Latent TB treatment. 5. Continue with oral steroid taper outpatient as instructed. Continue with Mesalamine enema outpatient. 6. If symptoms return or worsen please call your PCP or return to the ED. ACTIVITY: As prior to admission. DIET: As prior to admission. TIME SPENT ON DISCHARGE: 50 minutes. Vital Signs/I&Os Vital Signs Date Time Temp Pulse Resp B/P (MAP) Pulse Ox O2 Delivery O2 Flow Rate FiO2 04/27/19 06:00 97.4 63 17 121/66 (84) 97 Room Air I&O- Last 24 Hours up to 6 AM 04/27/19 06:00 Intake Total 1020 ml Output Total 150 ml Balance 870 ml Laboratory Data Labs 24H Laboratory Tests 2 04/27/19 06:35: Nucleated Red Blood Cells % (auto) 0.0, Anion Gap 5L, Glomerular Filtration Rate > 60.0, Calcium Level 8.4L CBC/BMP Laboratory Tests 04/27/19 06:35 Microbiology Microbiology 04/22/19 Blood Culture - Preliminary, Resulted No Growth after 72 hours. All specime... 04/22/19 Blood Culture - Preliminary, Resulted No Growth after 72 hours. All specime... Discharge Medications Scheduled Famotidine (Famotidine) 20 Mg Tablet, 20 MG PO BID, (Reported) Ferrous Sulfate (Iron) 325 Mg Tablet, 325 TAB PO DAILY, (Reported) Fluticasone Propionate (Fluticasone Propionate) 16 Gm [place].susp, 1 SPRAY NA DAILY, (Reported) Fluticasone/Vilanterol (Breo Ellipta 100-25 Mcg INH) 1 Each Blst.w.dev, 1 PUFF PO DAILY, (Reported) Lactobacillus Acidophilus (Probiotic) 1 Each Capsule, 1 CAP PO DAILY, (Reported) Mesalamine (Canasa) 1,000 Mg Supp.rect, 1,000 MG ID QHS Multivitamin,Therapeutic (Thera) 1 Each Tablet, 1 TAB PO DAILY, (Reported) Prednisone (Prednisone) 10 Mg Tablet, 10 MG PO TAPER 6 tabs qd x 5 days,5 tabs qd x 5 days,4 tabs qd x 5 days,3 tabs qd x 5 days,2 tabs qd x 5 days,1 tab qd x 5 days & stop Rifampin (Rifampin) 300 Mg Capsule, 2 CAP PO DAILY for latent TB Take 2 Capsules (600 mg) daily for 4 months Simvastatin (Simvastatin) 20 Mg Tablet, 20 MG PO QHS, (Reported) Scheduled PRN Loperamide HCl (Loperamide) 2 Mg Capsule, 2 MG PO BID PRN for DIARRHEA, (Reported) Ondansetron HCl (Ondansetron HCl) 4 Mg Tablet, 4 MG PO BID PRN for NAUSEA OR VOMITING, (Reported) Allergies Coded Allergies: No Known Allergies (Verified Allergy, Unknown, 04/22/19) GME ATTESTATION GME ATTESTATION My faculty preceptor for this patient encounter was physically present during the encounter and was fully available. All aspects of the patient interview, examination, medical decision making process, and medical care plan development were reviewed and approved by the faculty preceptor. The faculty preceptor is aware and concurs with the plan as stated in the body of this note and will at test to such by his/her cosignature. ATTENDING NOTE Patient was seen and examined by me this morning with the residents. Agree with the above assessment and plan LETICIA SORIANO OMS-3 Apr 27, 2019 11:17 GIO GIORDANO DO Apr 27, 2019 13:01 CHRISTIANO ROBERTS MD Apr 28, 2019 13:11
== END 2019-04-27 13:33 | disposition home or self-care (01) | DRG 387 ==
LOC: M ED 11:55 → M ED INP 13:58 → ENRESERVDT 14:40 → ENRESERVTM 14:40 → M MSPAV 16:37
PROVIDERS: ADMIT Internal Medicine; ATTEND Internal Medicine
DX: K51.911 Ulcerative colitis, unspecified with rectal bleeding (principal); J44.9 Chronic obstructive pulmonary disease, unspecified; K21.9 Gastro-esophageal reflux disease without esophagitis; I25.10 Atherosclerotic heart disease of native coronary artery without angina pectoris; D50.0 Iron deficiency anemia secondary to blood loss (chronic); E78.5 Hyperlipidemia, unspecified; R63.4 Abnormal weight loss; J33.9 Nasal polyp, unspecified; Z66 Do not resuscitate; Z79.899 Other long term (current) drug therapy; Z22.7 Latent tuberculosis; Z98.49 Cataract extraction status, unspecified eye; Z95.1 Presence of aortocoronary bypass graft; Z87.891 Personal history of nicotine dependence

== ENCOUNTER → 2019-06-24 | Outpatient (REF) | payer MEDICARE ==
[~2019-06-24] MED LIST changes: +BRONCHW PO; +BUDE3CAP PO; +IRON65TA2 PO; +MESA50SU PR; +PRED10TA2 PO; +PROBCAP14 PO; +RIFA30CA PO; +THERTAB56 PO; +[UNRECOGNIZED DRUG - CODE] RC
[2019-06-24 11:42] LABS: BASO % 0.3 % (0.0-1.0); EOS # 2.9 10^3/uL (0.0-0.5); HEMATOCRIT 39.8 % (42.0-52.0); HEMOGLOBIN 13.1 g/dl (13.5-17.5); LYMPH # 3.6 10^3/uL (1.5-5.0); LYMPH % 28.7 % (24.0-44.0); MEAN CORPUSCULAR HEMOGLOBIN 30.5 pg (27.0-33.0); MEAN CORPUSCULAR HGB CONC 32.9 g/dl (32.0-36.5); MEAN CORPUSCULAR VOLUME 92.8 fl (80.0-96.0); MONO # 1.4 10^3/uL (0.0-0.8); MONO % 10.9 % (0.0-5.0); NEUTROPHILS # 4.7 10^3/uL (1.5-8.5); NEUTROPHILS % 37.2 % (36.0-66.0); PLATELET COUNT, AUTOMATED 294 10^3/uL (150-450); RED BLOOD COUNT 4.29 10^6/uL (4.30-6.10); WHITE BLOOD COUNT 12.7 10^3/uL (4.0-10.0)
[2019-06-24 12:05] LABS: ALBUMIN 2.8 GM/DL (3.2-5.2); ALT/SGPT 28 U/L (12-78); BILIRUBIN,DIRECT 0.1 MG/DL (0.0-0.2); BILIRUBIN,TOTAL 0.3 MG/DL (0.2-1.0); BLOOD UREA NITROGEN 16 MG/DL (7-18); C REACTIVE PROTEIN QUANTITATIV 0.31 MG/DL (0.00-0.30); GLOMERULAR FILTRATION RATE > 60.0 (>42); TOTAL PROTEIN 6.5 GM/DL (6.4-8.2)
[2019-06-24 12:40] LABS: EOS % 22.6 % (0.0-3.0)
[2019-06-24 12:53] LABS: ERYTHROCYTE SEDIMENTATION RATE 46 mm/hr (0-20)
== END ==
LOC: M LABDRAWC 11:15
PROVIDERS: ATTEND Internal Medicine Gastroenterology
DX: K51.911 Ulcerative colitis, unspecified with rectal bleeding (principal); Z22.7 Latent tuberculosis

== ENCOUNTER → 2019-06-24 | Outpatient (REF) | payer MEDICARE ==
[2019-06-24 12:04] LABS: CHOLESTEROL RISK RATIO 4.636 (<5)
[2019-06-24 13:44] LABS: HEMOGLOBIN A1c 5.8 %
== END ==
LOC: M SFHCCLAY 08:03
PROVIDERS: ATTEND Family Medicine
DX: E11.9 Type 2 diabetes mellitus without complications (principal); E78.2 Mixed hyperlipidemia
CPT/HCPCS: 36415; 80061; 80076; 82565; 83036; 84520; 85025; 85652; 86140; G0463

== ENCOUNTER → 2019-07-05 | Outpatient (CLI) | payer MEDICARE ==
--- NOTE | 2019-06-22 16:13 | REP ---
COOKIE SWALLOW The procedure was performed under the direct supervision of Dr. Haq. The procedure was performed with Jacqueline Blas from speech pathology present. 5 ml aliquots of pudding, thin, mixed fruit and soft consistency barium was administered as well as a barium pill. With the soft consistency barium the patient is able to separate the pudding from the bread and swallow the pudding, however, he was unable to swallow the bread. There is no evidence of penetration or aspiration. A detailed report of this examination will be provided by speech pathology. 1.1 minutes of fluoroscopy time was utilized for this procedure. Electronically Signed by JESICA Morel 06/22/2019 03:45 P Electronically Signed by Salo Haq MD 06/22/2019 04:04 P
[~2019-07-05] MED LIST changes: +BARIUM SULFATE 700 MG TABLET (E-Z-DISK) As Ordered ONE; +E-Z-GAS II EFFERVESCENT PACKET (SODIUM BICARB./CITRIC ACID/SIMETHICONE) As Ordered ONE; +E-Z-HD 98% w/w 340GM SUSP BTL As Ordered ONE; +E-Z-PAQUE 96% w/w SUSP 176GM BTL As Ordered ONE; +PROHANCE 279.3MG/ML 15ML VIAL As Ordered ONE; +VARIBAR NECTAR 40% w/v 240ML SUSP BTL As Ordered ONE; +VARIBAR PUDDING 40% w/v 230ML TUBE As Ordered ONE
--- NOTE | 2019-07-05 10:22 | REP ---
MRI ABDOMEN WITH AND WITHOUT CONTRAST: COMPARISON: CT 04/22/2019. TECHNIQUE: Multiple sequences obtained in the axial and coronal planes prior to and following the intravenous administration of 15 mL ProHance. Liver and spleen are normal in size. There is no evidence of liver mass. There is a subcentimeter gallstone in the gallbladder without evidence of gallbladder wall thickening or edema. There is no biliary dilatation. There is no evidence of sclerosing cholangitis. Adrenal glands are normal. No pancreatic mass is seen. Pancreatic duct is normal in caliber. No hydronephrosis is seen of either kidney. There is a cyst of the lateral aspect of the left kidney 5.1 cm in diameter with no internal enhancement. No adenopathy is seen. There is no abdominal aortic aneurysm. No ascites is seen. IMPRESSION: No pancreatic mass, or adenopathy. No evidence of sclerosing cholangitis. Subcentimeter gallstones are seen in a noninflamed gallbladder. Left renal cyst. Electronically Signed by Salo Haq MD 07/05/2019 12:17 P
--- NOTE | 2019-07-05 16:58 | REP ---
Esophagram The procedure was performed under the direct supervision of Dr. Haq. The images were reviewed with Dr. Haq. A single view PA chest x-ray is submitted as a medical office technologist film. There is no change compared to a previous chest x-ray performed on 04/22/2019. Liquid barium and gas producing granules were given in the erect position as well as liquid barium in the prone oblique positions in order to perform a double contrast esophagram examination. The oral and pharyngeal stages of deglutition are unremarkable. Esophageal transport is prompt and efficient and there is no esophagitis, stricture or mucosal ring. There is a sliding type hiatal hernia. Gastroesophageal reflux is not demonstrated on this examination. Impression: There is a sliding type hiatal hernia. Otherwise, unremarkable double contrast esophagram examination. 0.6 minutes of fluoro time was utilized for this procedure. Electronically Signed by JESICA Morel 07/05/2019 04:30 P Electronically Signed by Salo Haq MD 07/05/2019 04:49 P
== END ==
LOC: M RAD 06-22 13:21
PROVIDERS: ATTEND Internal Medicine Gastroenterology
DX: R11.0 Nausea (principal); R63.4 Abnormal weight loss
CPT/HCPCS: 74183; 74220; 74230; 92611; A9576

== ENCOUNTER 2019-12-20 13:36 | Outpatient (CLI) | payer MEDICARE ==
[~2019-12-20] VITALS: Ht 170.2 cm; Wt 74.8 kg
[~2019-12-20 13:36] MED LIST changes: -BARIUM SULFATE 700 MG TABLET (E-Z-DISK) As Ordered ONE; -E-Z-GAS II EFFERVESCENT PACKET (SODIUM BICARB./CITRIC ACID/SIMETHICONE) As Ordered ONE; -E-Z-HD 98% w/w 340GM SUSP BTL As Ordered ONE; -E-Z-PAQUE 96% w/w SUSP 176GM BTL As Ordered ONE; -PROHANCE 279.3MG/ML 15ML VIAL As Ordered ONE; -VARIBAR NECTAR 40% w/v 240ML SUSP BTL As Ordered ONE; -VARIBAR PUDDING 40% w/v 230ML TUBE As Ordered ONE
[2019-12-20] MEDS ORDERED: NS 1,000 ML IV SCH (14:00)
[2019-12-20] MEDS ORDERED: methylPREDNISolone 125MG 2ML VIAL IV PRN (14:00)
[2019-12-20] MEDS ORDERED: VEDOLIZUMAB 300 MG in NS 250 ML IV ONE (14:00)
[2019-12-20] MEDS ORDERED: ALBUTEROL SULFATE 2.5 MG/0.5 ML INH NEB SOLN INH PRN (14:00)
[2019-12-20] MEDS ORDERED: EPINEPHrine INJ 1 MG/ML 1ML AMP IM PRN (14:00)
[2019-12-20] MEDS ORDERED: diphenhydrAMINE 50MG/ML VIAL (J1200) IV PRN (14:00)
[2019-12-20] MEDS ORDERED: SUCR1TA PO (14:02)
[2019-12-20] MEDS ORDERED: AZAT50TA2 PO (14:02)
[2019-12-20] MEDS ORDERED: METACAP3 PO (14:02)
[2019-12-20] MEDS ORDERED: CALC1TAB30 PO (14:02)
[2019-12-20] MEDS ORDERED: PRED10PA2 PO (14:02)
[2019-12-20] MEDS ORDERED: MESA4KIT PR (14:02)
[2019-12-20 14:05] VITALS: BP 161/57
[2019-12-20 14:13] VITALS: BP 161/57
[2019-12-20 15:17] VITALS: BP 123/60
== END 2019-12-20 15:45 | disposition home or self-care (01) ==
LOC: M INFU 13:36
PROVIDERS: ATTEND Internal Medicine Gastroenterology
DX: K51.90 Ulcerative colitis, unspecified, without complications (principal)

== ENCOUNTER 2020-01-03 13:41 | Outpatient (CLI) | payer MEDICARE ==
[~2020-01-03] VITALS: Ht 170.2 cm; Wt 74.8 kg
[~2020-01-03 13:41] MED LIST changes: +ALBUTEROL SULFATE 2.5 MG/0.5 ML INH NEB SOLN INH PRN; +AZAT50TA2 PO; +CALC1TAB30 PO; +EPINEPHrine INJ 1 MG/ML 1ML AMP IM PRN; +MESA4KIT PR; +METACAP3 PO; +PRED10PA2 PO; +SUCR1TA PO; +diphenhydrAMINE 50MG/ML VIAL (J1200) IV PRN; +methylPREDNISolone 125MG 2ML VIAL IV PRN
[2020-01-03 13:45] VITALS: BP 142/70
[2020-01-03] MEDS ORDERED: VEDOLIZUMAB 300 MG in NS 250 ML IV ONE (14:00)
[2020-01-03] MEDS ORDERED: NS 1,000 ML IV SCH (14:00)
[2020-01-03 14:50] VITALS: BP 134/78
== END 2020-01-03 15:00 | disposition home or self-care (01) ==
LOC: M INFU 13:41
PROVIDERS: ATTEND Internal Medicine Gastroenterology
DX: K51.90 Ulcerative colitis, unspecified, without complications (principal)

== ENCOUNTER 2020-02-03 16:18 | Outpatient (CLI) | payer MEDICARE ==
[~2020-02-03] VITALS: Ht 170.2 cm; Wt 74.8 kg
[2020-02-03 16:00] VITALS: BP 139/62
[~2020-02-03 16:18] MED LIST changes: +VEDOLIZUMAB 300 MG in NS 250 ML IV ONE
[2020-02-03 16:40] VITALS: BP 139/62
[2020-02-03 17:20] VITALS: BP 146/71
== END 2020-02-03 17:20 | disposition home or self-care (01) ==
LOC: M INFU 16:18
PROVIDERS: ATTEND Internal Medicine Gastroenterology
DX: K51.90 Ulcerative colitis, unspecified, without complications (principal)

== ENCOUNTER 2020-03-28 12:44 | Outpatient (CLI) | payer MEDICARE ==
[~2020-03-28] VITALS: Ht 170.2 cm; Wt 74.8 kg
[~2020-03-28 12:44] MED LIST changes: -VEDOLIZUMAB 300 MG in NS 250 ML IV ONE
[2020-03-28 12:53] VITALS: BP 154/66
[2020-03-28] MEDS ORDERED: NS 1,000 ML IV SCH (13:00)
[2020-03-28] MEDS ORDERED: VEDOLIZUMAB 300 MG in NS 250 ML IV ONE (13:00)
[2020-03-28 14:30] VITALS: BP 174/84
== END 2020-03-28 14:30 | disposition home or self-care (01) ==
LOC: M INFU 12:44
PROVIDERS: ATTEND Internal Medicine Gastroenterology
DX: K51.90 Ulcerative colitis, unspecified, without complications (principal)

== ENCOUNTER → 2020-06-28 | Outpatient (REF) | payer MEDICARE ==
[~2020-06-28] MED LIST changes: -ALBUTEROL SULFATE 2.5 MG/0.5 ML INH NEB SOLN INH PRN; -EPINEPHrine INJ 1 MG/ML 1ML AMP IM PRN; -diphenhydrAMINE 50MG/ML VIAL (J1200) IV PRN; -methylPREDNISolone 125MG 2ML VIAL IV PRN
[2020-06-28 11:50] LABS: BASO % 0.2 % (0.0-1.0); EOS # 0.4 10^3/uL (0.0-0.5); EOS % 4.2 % (0.0-3.0); HEMATOCRIT 37.8 % (42.0-52.0); HEMOGLOBIN 11.3 g/dl (13.5-17.5); LYMPH # 3.1 10^3/uL (1.5-5.0); LYMPH % 33.6 % (24.0-44.0); MEAN CORPUSCULAR HEMOGLOBIN 26.9 pg (27.0-33.0); MEAN CORPUSCULAR HGB CONC 29.9 g/dl (32.0-36.5); MONO % 10.5 % (2.0-8.0); NEUTROPHILS # 4.7 10^3/uL (1.5-8.5); NEUTROPHILS % 51.1 % (36.0-66.0); PLATELET COUNT, AUTOMATED 276 10^3/uL (150-450); WHITE BLOOD COUNT 9.3 10^3/uL (4.0-10.0)
[2020-06-28 12:05] LABS: ALBUMIN 3.5 GM/DL (3.2-5.2); ALT/SGPT 28 U/L (12-78); BILIRUBIN,TOTAL 0.2 MG/DL (0.2-1.0); BLOOD UREA NITROGEN 17 MG/DL (7-18); CALCIUM LEVEL 9.1 MG/DL (8.8-10.2); CARBON DIOXIDE LEVEL 27 MEQ/L (21-32); CHLORIDE LEVEL 110 MEQ/L (98-107); CHOLESTEROL LEVEL 195 MG/DL (<200); CHOLESTEROL RISK RATIO 4.431 (<5); CREATININE FOR GFR 1.12 MG/DL (0.70-1.30); GLOMERULAR FILTRATION RATE > 60.0 (>42); GLUCOSE, FASTING 129 MG/DL (70-100); HDL CHOLESTEROL 44 MG/DL (>40); IRON (FE) 236 UG/DL (65-175); LDL CHOLESTEROL 100 MG/DL (<100); NON-HDL-C 151 MG/DL; POTASSIUM SERUM 4.2 MEQ/L (3.5-5.1); SODIUM LEVEL 141 MEQ/L (136-145); TRIGLYCERIDES LEVEL 256 MG/DL (<150)
[2020-06-28 12:10] LABS: HEMOGLOBIN A1c 5.3 %
== END ==
LOC: M SFHCCLAY 08:14
PROVIDERS: ATTEND Family Medicine
DX: K51.011 Ulcerative (chronic) pancolitis with rectal bleeding (principal); I10 Essential (primary) hypertension; E11.9 Type 2 diabetes mellitus without complications; E78.2 Mixed hyperlipidemia
CPT/HCPCS: 80053; 80061; 83036; 83540; 85025; G0463

== ENCOUNTER → 2020-07-04 | Outpatient (REF) | payer MEDICARE | LOC: M SFHCCLAY 11:38 | PROVIDERS: ATTEND Physician Assistant | DX: R35.0 Frequency of micturition (principal) | CPT/HCPCS: 81002; 87086; G0463 ==

== ENCOUNTER → 2020-08-09 | Outpatient (CLI) | payer MEDICARE ==
--- NOTE | 2020-08-09 11:52 | REP ---
INDICATION: LOW BACK PAIN. COMPARISON: None. TECHNIQUE: Five views FINDINGS: Heavy marginal osteophytosis is seen bilaterally at L1-2 and on the right at L3-4. Vertebral body height and alignment is within normal limits. There is advanced disc space narrowing at L1-2 with air density in the disc space consistent with vacuum phenomena from degenerative disc disease. Moderate to severe posterior disc space narrowing is seen at all other levels. Degenerative facet joint changes seen bilaterally at all levels particularly L4-5 L5-S1. There is anterior lipping at every level. IMPRESSION: Chronic changes as described above. <Electronically signed by Kavon Lang > 08/09/20 [id number]
--- NOTE | 2020-08-09 11:54 | REP ---
INDICATION: HIP PAIN COMPARISON: None. TECHNIQUE: Two views right hip. FINDINGS: There is no evidence of acute fracture, dislocation, or intrinsic bone disease.There is mild central joint space narrowing and subchondral sclerosis. Mild tendinous calcification is seen at the superior margin of the greater trochanter of the proximal right femur. A metallic clip is seen in the soft tissues of the medial thigh. IMPRESSION: No fracture or dislocation. Mild degenerative changes and tendinous calcification. <Electronically signed by Salo Haq > 08/09/20 [id number]
== END ==
LOC: M CLY 10:37
PROVIDERS: ATTEND Family Medicine
DX: M51.36 Other intervertebral disc degeneration, lumbar region (principal); M25.78 Osteophyte, vertebrae; M54.5 Low back pain; M25.559 Pain in unspecified hip
CPT/HCPCS: 72110; 73502; G0463

== ENCOUNTER → 2020-12-28 | Outpatient (REF) | payer MEDICARE ==
[2020-12-28 16:02] LABS: BASO % 0.2 % (0.0-1.0); EOS # 0.5 10^3/uL (0.0-0.5); EOS % 4.8 % (0.0-3.0); HEMATOCRIT 40.7 % (42.0-52.0); LYMPH # 2.9 10^3/uL (1.5-5.0); LYMPH % 28.7 % (24.0-44.0); MEAN CORPUSCULAR HEMOGLOBIN 29.6 pg (27.0-33.0); MEAN CORPUSCULAR HGB CONC 31.9 g/dl (32.0-36.5); MEAN CORPUSCULAR VOLUME 92.7 fl (80.0-96.0); MONO # 0.9 10^3/uL (0.0-0.8); MONO % 8.7 % (2.0-8.0); NEUTROPHILS # 5.7 10^3/uL (1.5-8.5); PLATELET COUNT, AUTOMATED 197 10^3/uL (150-450); RED BLOOD COUNT 4.39 10^6/uL (4.30-6.10); WHITE BLOOD COUNT 9.9 10^3/uL (4.0-10.0)
[2020-12-28 16:18] LABS: HEMOGLOBIN A1c 5.5 %
[2020-12-28 16:23] LABS: ALBUMIN 3.7 GM/DL (3.2-5.2); BILIRUBIN,TOTAL 0.3 MG/DL (0.2-1.0); CALCIUM LEVEL 9.5 MG/DL (8.8-10.2); CREATININE FOR GFR 1.33 MG/DL (0.70-1.30); GLOMERULAR FILTRATION RATE 55.4 (>42); POTASSIUM SERUM 4.6 MEQ/L (3.5-5.1); TOTAL PROTEIN 7.1 GM/DL (6.4-8.2)
== END ==
LOC: M SFHCCLAY 10:48
PROVIDERS: ATTEND Family Medicine
DX: I10 Essential (primary) hypertension (principal); E11.9 Type 2 diabetes mellitus without complications
CPT/HCPCS: 80053; 83036; 83540; 85025; G0463

== ENCOUNTER → 2021-07-11 | Outpatient (REF) | payer MEDICARE, OTHER ==
[~2021-07-11] MED LIST changes: -AZAT50TA2 PO; +AZAT50TA37 PO
[2021-07-11 18:05] LABS: APPEARANCE, URINE HAZY (CLEAR); BACTERIA, URINE AUTO NEGATIVE (NEGATIVE); BILIRUBIN, URINE AUTO NEGATIVE (NEGATIVE); BLOOD, URINE BLOOD NEGATIVE (NEGATIVE); COLOR, URINE YELLOW (YELLOW); GLUCOSE, URINE (UA) AUTO NEGATIVE (NEGATIVE); KETONE, URINE AUTO NEGATIVE (NEGATIVE); LEUKOCYTE ESTERASE, URINE AUTO NEGATIVE (NEGATIVE); MUCUS, URINE SMALL (NEGATIVE); NITRITE, URINE AUTO NEGATIVE (NEGATIVE); PROTEIN, URINE AUTO NEGATIVE (NEGATIVE); RBC, URINE AUTO 2 /HPF (0-3); SPECIFIC GRAVITY URINE AUTO 1.019 (1.002-1.035); SQUAMOUS EPITHELIAL CELL UR AU 0 /HPF (0-6); UROBILINOGEN, URINE AUTO 0.2 mg/dL (0.0-2.0); WBC, URINE AUTO 2 /HPF (0-3)
== END ==
LOC: M SMT 17:12
PROVIDERS: ATTEND Nurse Practitioner Women's Health
DX: R31.0 Gross hematuria (principal)

== ENCOUNTER → 2021-09-05 | Outpatient (REF) | payer OTHER ==
[~2021-09-05] MED LIST changes: +ALBU8.5H INH; +AZIT-12 PO; +BACT800T5 PO; +CELE1CAP9 PO; +DOXA1TAB41 PO; +FLUT1BLS8 INH; +FLUTISP NARES; +PRED20TA PO; +THERTAB52 PO; +TRAM50TA2 PO; +ZINC50TA4 PO
[2021-09-05 12:04] LABS: BASO % 0.1 % (0.0-1.0); EOS # 0.1 10^3/uL (0.0-0.5); EOS % 0.6 % (0.0-3.0); HEMOGLOBIN 12.9 g/dl (13.5-17.5); LYMPH # 2.3 10^3/uL (1.5-5.0); LYMPH % 16.6 % (24.0-44.0); MEAN CORPUSCULAR HEMOGLOBIN 30.6 pg (27.0-33.0); MEAN CORPUSCULAR HGB CONC 33.1 g/dl (32.0-36.5); MEAN CORPUSCULAR VOLUME 92.4 fl (80.0-96.0); MONO # 1.2 10^3/uL (0.0-0.8); MONO % 8.3 % (2.0-8.0); NEUTROPHILS # 10.2 10^3/uL (1.5-8.5); NEUTROPHILS % 73.3 % (36.0-66.0); PLATELET COUNT, AUTOMATED 192 10^3/uL (150-450); RED BLOOD COUNT 4.22 10^6/uL (4.30-6.10)
[2021-09-05 12:19] LABS: ALBUMIN 3.6 GM/DL (3.2-5.2); BILIRUBIN,TOTAL 0.6 MG/DL (0.2-1.0); CALCIUM LEVEL 9.3 MG/DL (8.8-10.2); CREATININE FOR GFR 1.47 MG/DL (0.70-1.30); GLOMERULAR FILTRATION RATE 49.2 (>42); POTASSIUM SERUM 3.8 MEQ/L (3.5-5.1); TOTAL PROTEIN 6.9 GM/DL (6.4-8.2)
[2021-09-05 12:29] LABS: BACTERIA, URINE AUTO NEGATIVE (NEGATIVE); MUCUS, URINE SMALL (NEGATIVE); RBC, URINE AUTO 1 /HPF (0-3); SQUAMOUS EPITHELIAL CELL UR AU 0 /HPF (0-6); WBC, URINE AUTO 2 /HPF (0-3)
[2021-09-05 12:31] LABS: HEMOGLOBIN A1c 5.6 %
== END ==
LOC: M SFHCCLAY 08:53
PROVIDERS: ATTEND Family Medicine
DX: Z01.818 Encounter for other preprocedural examination (principal); I10 Essential (primary) hypertension; E11.9 Type 2 diabetes mellitus without complications; R31.0 Gross hematuria; K51.011 Ulcerative (chronic) pancolitis with rectal bleeding

== ENCOUNTER → 2021-09-08 | Outpatient (CLI) | payer OTHER ==
[~2021-09-08] MED LIST changes: -BACT800T5 PO; -FLUT1BLS8 INH; +FLUTISP INH; -FLUTISP NARES; -THERTAB52 PO
== END ==
LOC: M LABSMTC 11:01
PROVIDERS: ATTEND Anesthesiology
DX: Z11.52 Encounter for screening for COVID-19 (principal); Z20.822 Contact with and (suspected) exposure to COVID-19

== ENCOUNTER 2021-09-13 06:05 | Day surgery (SDC) | payer OTHER ==
[~2021-09-13] VITALS: Ht 170.2 cm; Wt 91.7 kg
[2021-09-13] VITALS (10 sets, daily range): BP systolic 121–137; BP diastolic 55–68; O2SAT 94–98
[~2021-09-13 06:05] MED LIST changes: -FLUTISP INH; +FLUTISP NARES; +ceFAZolin SOD 2 GM in IV 1 EA IV ONE
[2021-09-13] MEDS ORDERED: LR 1,000 ML IV SCH (06:35)
[2021-09-13] MEDS ORDERED: FLUT1BLS8 INH (06:36)
[2021-09-13] MEDS ORDERED: LIDOCAINE 2% 100MG/5ML SDV (FOR ANES.) As Ordered ONE (07:08)
[2021-09-13] MEDS ORDERED: propofoL 200 MG/20 ML VIAL As Ordered ONE (07:08)
[2021-09-13] MEDS ORDERED: fentaNYL 100 MCG/2 ML INJECTION As Ordered ONE (07:11)
[2021-09-13] MEDS ORDERED: LIDOCAINE 2% 5ML JELLY UROJET As Ordered ONE (07:12)
[2021-09-13] MEDS ORDERED: ONDANSETRON 4MG 2ML VIAL As Ordered ONE (07:44)
[2021-09-13] MEDS ORDERED: HYDROmorphone HCL 2MG/ML 1ML VIAL As Ordered ONE (08:50)
[2021-09-13] MEDS ORDERED: MEPERIDINE INJ 25 MG/ML VIAL (J2175) IV PRN (09:45)
[2021-09-13] MEDS ORDERED: ONDANSETRON 4MG 2ML VIAL IV PRN (09:45)
[2021-09-13] MEDS ORDERED: fentaNYL 100 MCG/2 ML INJECTION IV PRN (09:45)
[2021-09-13] MEDS ORDERED: oxyCODONE 5MG TAB PO PRN (09:45)
[2021-09-13] MEDS ORDERED: NS 1,000 ML IV SCH (09:45)
[2021-09-13] MEDS ORDERED: THERTAB52 PO (10:46)
[2021-09-13] MEDS ORDERED: HOME MED LIST COMPLETE! XX SCH (10:50)
[2021-09-13] MEDS: oxyBUTYnin *DITROPAN XL* 5 MG TABCR PO SCH (13:37)
[2021-09-13] MEDS: SIMVASTATIN 20 MG TAB PO SCH (13:37)
[2021-09-13] MEDS: traMADol 50 MG TAB PO PRN ×2 (15:08→21:30)
[2021-09-13] MEDS: PHENAZOPYRIDINE 100 MG TAB PO SCH ×2 (17:47→21:31)
[2021-09-13] MEDS: ALBUTEROL 90 MCG/ACT 8GM HFA INHALER INH PRN (21:50)
[2021-09-13] MEDS: DOXAZOSIN MESYLATE 4 MG TAB PO SCH (22:23)
[2021-09-14] VITALS (7 sets, daily range): BP systolic 112–123; BP diastolic 47–59; O2SAT 91
[2021-09-14] MEDS ORDERED: CIPROFLOXACIN 250MG TAB PO SCH (06:00)
[2021-09-14 06:33] LABS: HEMATOCRIT 33.8 % (42.0-52.0); HEMOGLOBIN 10.7 g/dl (13.5-17.5); MEAN CORPUSCULAR HEMOGLOBIN 29.4 pg (27.0-33.0); MEAN CORPUSCULAR HGB CONC 31.7 g/dl (32.0-36.5); MEAN CORPUSCULAR VOLUME 92.9 fl (80.0-96.0); PLATELET COUNT, AUTOMATED 153 10^3/uL (150-450); RED BLOOD COUNT 3.64 10^6/uL (4.30-6.10); WHITE BLOOD COUNT 14.6 10^3/uL (4.0-10.0)
[2021-09-14 07:01] LABS: CALCIUM LEVEL 7.8 MG/DL (8.8-10.2); CREATININE FOR GFR 1.87 MG/DL (0.70-1.30); GLOMERULAR FILTRATION RATE 37.3 (>42)
[2021-09-14] MEDS: ALBUTEROL 90 MCG/ACT 8GM HFA INHALER INH PRN (07:53)
[2021-09-14] MEDS: IPRATROPIUM 0.5MG/ALBUTEROL 2.5MG INH SOL UD 3ML (DUONEB) NEB SCH ×3 (08:00→19:35)
[2021-09-14] MEDS ORDERED: ACETAMINOPHEN TAB 650MG DOSE (2X325MG) PO PRN (08:10)
[2021-09-14] MEDS ORDERED: NS 1,000 ML IV SCH (08:20)
[2021-09-14] MEDS ORDERED: NS 1,000 ML IV ONE (08:20)
[2021-09-14] MEDS ORDERED: IPRATROPIUM 0.5MG/ALBUTEROL 2.5MG INH SOL UD 3ML (DUONEB) NEB PRN (08:25)
[2021-09-14] MEDS: oxyBUTYnin *DITROPAN XL* 5 MG TABCR PO SCH (08:32)
[2021-09-14] MEDS: SIMVASTATIN 20 MG TAB PO SCH (08:33)
[2021-09-14] MEDS: FERROUS SULFATE 325MG TAB PO SCH (08:33)
[2021-09-14] MEDS: FLUTICASONE PROP 0.05% NASAL SPRAY 16 GM (FLONASE) NARES SCH ×3 (09:00→10:24)
[2021-09-14] MEDS: ADVAIR HFA 230/21MCG INHALER INH SCH ×2 (10:17→19:35)
[2021-09-14] MEDS: MULTIVITAMINS/MINERALS THERAP 1 TAB PO SCH (10:20)
[2021-09-14] MEDS: cefTRIAXone SOD 1 GM in D5W MINI-BAG PLUS 50 ML IV SCH (10:21)
[2021-09-14 10:22] LABS: GLUCOSE, URINE (UA) MANUAL NEGATIVE (NEGATIVE); KETONE, URINE MANUAL OBSCURED mg/dL (NEGATIVE)
[2021-09-14 10:23] LABS: BILIRUBIN, URINE MANUAL OBSCURED (NEGATIVE); UROBILINOGEN, URINE MANUAL OBSCURED mg/dl (NORMAL)
[2021-09-14 10:25] LABS: BACTERIA, URINE SMALL AMOUNT; HYALINE CAST, URINE NONE SEEN /lpf (0-1); RBC, URINE TNTC /hpf (0-3); SQUAMOUS EPITHELIAL CELL URINE NONE SEEN /hpf (SMALL AMT)
[2021-09-14] MEDS: DOXAZOSIN MESYLATE 4 MG TAB PO SCH (20:27)
[2021-09-15] MEDS: IPRATROPIUM 0.5MG/ALBUTEROL 2.5MG INH SOL UD 3ML (DUONEB) NEB SCH ×3 (02:00→13:22)
[2021-09-15 02:24] VITALS: O2SAT 96
[2021-09-15 06:00] VITALS: BP 129/60
[2021-09-15] MEDS: ADVAIR HFA 230/21MCG INHALER INH SCH (07:22)
[2021-09-15 08:04] LABS: BASO % 0.2 % (0.0-1.0); EOS # 0.6 10^3/uL (0.0-0.5); EOS % 5.2 % (0.0-3.0); HEMATOCRIT 31.4 % (42.0-52.0); HEMOGLOBIN 9.8 g/dl (13.5-17.5); LYMPH # 1.8 10^3/uL (1.5-5.0); LYMPH % 16.1 % (24.0-44.0); MEAN CORPUSCULAR HEMOGLOBIN 30.1 pg (27.0-33.0); MEAN CORPUSCULAR HGB CONC 31.2 g/dl (32.0-36.5); MEAN CORPUSCULAR VOLUME 96.3 fl (80.0-96.0); MONO # 1.1 10^3/uL (0.0-0.8); MONO % 9.5 % (2.0-8.0); NEUTROPHILS # 7.6 10^3/uL (1.5-8.5); NEUTROPHILS % 68.5 % (36.0-66.0); PLATELET COUNT, AUTOMATED 136 10^3/uL (150-450); RED BLOOD COUNT 3.26 10^6/uL (4.30-6.10); WHITE BLOOD COUNT 11.1 10^3/uL (4.0-10.0)
[2021-09-15 08:29] LABS: CALCIUM LEVEL 8.1 MG/DL (8.8-10.2); CREATININE FOR GFR 1.32 MG/DL (0.70-1.30); GLOMERULAR FILTRATION RATE 55.7 (>42); MAGNESIUM LEVEL 2.1 MG/DL (1.8-2.4); POTASSIUM SERUM 4.2 MEQ/L (3.5-5.1)
[2021-09-15] MEDS: FLUTICASONE PROP 0.05% NASAL SPRAY 16 GM (FLONASE) NARES SCH (09:00)
[2021-09-15] MEDS: FERROUS SULFATE 325MG TAB PO SCH (09:35)
[2021-09-15] MEDS: MULTIVITAMINS/MINERALS THERAP 1 TAB PO SCH (09:35)
[2021-09-15] MEDS: cefTRIAXone SOD 1 GM in D5W MINI-BAG PLUS 50 ML IV SCH (09:35)
[2021-09-15] MEDS: SIMVASTATIN 20 MG TAB PO SCH (09:35)
[2021-09-15] MEDS: oxyBUTYnin *DITROPAN XL* 5 MG TABCR PO SCH (09:35)
[2021-09-15] MEDS ORDERED: BACT800T5 PO (11:48)
[2021-09-19 12:08] LABS: CA Oxalate Dihy 70 % (.); Ca Ox Monohydrate 30 % (.); Size 10x6 mm (.)
== END 2021-09-15 13:46 | disposition home or self-care (01) ==
LOC: M SDC 06:05 → M MSPAV 11:13 → M SDC 09-15 13:46
PROVIDERS: ATTEND Specialist
DX: N40.1 Benign prostatic hyperplasia with lower urinary tract symptoms (principal); N21.0 Calculus in bladder; R50.82 Postprocedural fever; J44.1 Chronic obstructive pulmonary disease with (acute) exacerbation; D72.829 Elevated white blood cell count, unspecified; R79.89 Other specified abnormal findings of blood chemistry; R06.02 Shortness of breath; I25.10 Atherosclerotic heart disease of native coronary artery without angina pectoris; Z95.1 Presence of aortocoronary bypass graft; Z95.5 Presence of coronary angioplasty implant and graft; R94.31 Abnormal electrocardiogram [ECG] [EKG]; I12.9 Hypertensive chronic kidney disease with stage 1 through stage 4 chronic kidney disease, or unspecified chronic kidney disease; I31.3 Pericardial effusion (noninflammatory); E78.5 Hyperlipidemia, unspecified; E11.9 Type 2 diabetes mellitus without complications; D64.9 Anemia, unspecified; K51.011 Ulcerative (chronic) pancolitis with rectal bleeding; Z22.7 Latent tuberculosis; R35.0 Frequency of micturition; R31.0 Gross hematuria; Z87.442 Personal history of urinary calculi; N17.9 Acute kidney failure, unspecified; N18.9 Chronic kidney disease, unspecified; Z79.899 Other long term (current) drug therapy; Z79.891 Long term (current) use of opiate analgesic; Z79.1 Long term (current) use of non-steroidal anti-inflammatories (NSAID); Z79.51 Long term (current) use of inhaled steroids; Z87.891 Personal history of nicotine dependence
CPT/HCPCS: 36415; 52353; 52601; 71045; 80048; 81000; 81015; 82365; 83605; 83735; 84145; 85025; 85027; 87040; 87086; 88300; 94640; C1769; J0690; J0696; J1170; J2405; J3010

== ENCOUNTER → 2022-01-14 | Outpatient (REF) | payer OTHER ==
[~2022-01-14] MED LIST changes: +BACT800T5 PO; +FLUT1BLS8 INH; +THERTAB52 PO; -ceFAZolin SOD 2 GM in IV 1 EA IV ONE
[2022-01-14 18:49] LABS: BASO % 0.2 % (0.0-1.0); EOS # 0.4 10^3/uL (0.0-0.5); HEMATOCRIT 41.6 % (42.0-52.0); HEMOGLOBIN 13.5 g/dl (13.5-17.5); LYMPH # 1.8 10^3/uL (1.5-5.0); MEAN CORPUSCULAR HEMOGLOBIN 29.3 pg (27.0-33.0); MEAN CORPUSCULAR HGB CONC 32.5 g/dl (32.0-36.5); MEAN CORPUSCULAR VOLUME 90.2 fl (80.0-96.0); MONO # 1.3 10^3/uL (0.0-0.8); MONO % 13.9 % (2.0-8.0); NEUTROPHILS # 5.7 10^3/uL (1.5-8.5); NEUTROPHILS % 61.4 % (36.0-66.0); PLATELET COUNT, AUTOMATED 221 10^3/uL (150-450); RED BLOOD COUNT 4.61 10^6/uL (4.30-6.10); WHITE BLOOD COUNT 9.2 10^3/uL (4.0-10.0)
[2022-01-14 19:04] LABS: ALBUMIN 3.7 G/DL (3.2-5.2); CARBON DIOXIDE LEVEL 20 MMOL/L (20-31); CHLORIDE LEVEL 104 MMOL/L (98-107); SODIUM LEVEL 137 MMOL/L (136-145)
[2022-01-14 19:09] LABS: BILIRUBIN,TOTAL 0.5 MG/DL (0.3-1.2); CALCIUM LEVEL 9.3 MG/DL (8.3-10.6); GLUCOSE, FASTING 102 MG/DL (74-106)
[2022-01-14 19:10] LABS: ALKALINE PHOSPHATASE 95 U/L (46-116); TOTAL PROTEIN 7.1 G/DL (5.7-8.2)
[2022-01-14 19:11] LABS: AST/SGOT 53 U/L (<34); GLOMERULAR FILTRATION RATE > 60.0 (>42)
[2022-01-14 19:12] LABS: IRON (FE) 19 UG/DL (65-175)
[2022-01-14 19:19] LABS: THYROID STIMULATING HORMONE 1.016 uIU/ML (0.55-4.78)
[2022-01-14 19:24] LABS: ALT/SGPT 50 U/L (7.0-40); BLOOD UREA NITROGEN 20 MG/DL (9-23); POTASSIUM SERUM 5.1 MMOL/L (3.5-5.1); TOTAL T3 74.8 NG/DL (60.0-181.0)
== END ==
LOC: M SFHCCLAY 10:35
PROVIDERS: ATTEND Family Medicine
DX: I10 Essential (primary) hypertension (principal); D64.9 Anemia, unspecified

== ENCOUNTER → 2022-07-07 | Outpatient (REF) | payer OTHER ==
[~2022-07-07] MED LIST changes: +FLUT50SP17; +FLUT50SP17 NARES; -FLUTISP; -FLUTISP NARES
[2022-07-07 17:22] LABS: HEMATOCRIT 41.4 % (42.0-52.0); HEMOGLOBIN 13.4 g/dl (13.5-17.5); MEAN CORPUSCULAR HEMOGLOBIN 29.6 pg (27.0-33.0); MEAN CORPUSCULAR HGB CONC 32.4 g/dl (32.0-36.5); MEAN CORPUSCULAR VOLUME 91.6 fl (80.0-96.0); PLATELET COUNT, AUTOMATED 214 10^3/uL (150-450); RED BLOOD COUNT 4.52 10^6/uL (4.30-6.10); WHITE BLOOD COUNT 9.6 10^3/uL (4.0-10.0)
[2022-07-07 17:32] LABS: IRON (FE) 98 UG/DL (65-175)
[2022-07-07 17:35] LABS: FOLATE > 24.00 NG/ML (>5.4); VITAMIN B12 LEVEL 509 PG/ML (211-911)
== END ==
LOC: M SFHCCLAY 11:00
PROVIDERS: ATTEND Family Medicine
DX: D64.9 Anemia, unspecified (principal)

== ENCOUNTER → 2022-08-12 | Outpatient (CLI) | payer OTHER | LOC: M PLAIMG 14:12 | PROVIDERS: ATTEND Family Medicine | DX: M48.062 Spinal stenosis, lumbar region with neurogenic claudication (principal) ==

== ENCOUNTER → 2022-12-12 | Outpatient (REF) | payer OTHER, MEDICAID ==
[~2022-12-12] MED LIST changes: +CELE0.09 PO; -CELE1CAP9 PO; +DICY-61 PO; -DICY10CA13 PO
[2022-12-12 18:14] LABS: ALKALINE PHOSPHATASE 93 U/L (46-116); ALT/SGPT 31 U/L (7.0-40); AST/SGOT 22 U/L (<34); BILIRUBIN,TOTAL 0.5 MG/DL (0.3-1.2); BLOOD UREA NITROGEN 20 MG/DL (9-23); CALCIUM LEVEL 10.1 MG/DL (8.3-10.6); CARBON DIOXIDE LEVEL 26 MMOL/L (20-31); CHLORIDE LEVEL 107 MMOL/L (98-107); CHOLESTEROL LEVEL 168 MG/DL (<200); CHOLESTEROL RISK RATIO 3.16 (<5); CREATININE FOR GFR 1.21 MG/DL (0.70-1.30); GLOMERULAR FILTRATION RATE > 60.0 (>35); GLUCOSE, FASTING 86 MG/DL (74-106); LDL CHOLESTEROL 84.4 MG/DL (<100); POTASSIUM SERUM 4.5 MMOL/L (3.5-5.1); SODIUM LEVEL 141 MMOL/L (136-145); TOTAL PROTEIN 7.2 G/DL (5.7-8.2); TRIGLYCERIDES LEVEL 153 MG/DL (<150)
[2022-12-12 18:47] LABS: HEMOGLOBIN A1c 5.3 % (4.0-6.0)
== END ==
LOC: M SFHCCLAY 11:30
PROVIDERS: ATTEND Family Medicine
DX: E11.9 Type 2 diabetes mellitus without complications (principal); Z23 Encounter for immunization; E78.2 Mixed hyperlipidemia

== ENCOUNTER → 2023-06-16 | Outpatient (CLI) | payer OTHER, MEDICAID ==
[~2023-06-16] MED LIST changes: -FLUT50SP17; -FLUT50SP17 NARES; +FLUTISP; +FLUTISP NARES
== END ==
LOC: M CLY 11:01
PROVIDERS: ATTEND Family Medicine
DX: R20.0 Anesthesia of skin (principal); M54.2 Cervicalgia

== ENCOUNTER → 2023-06-16 | Outpatient (CLI) | payer OTHER, MEDICAID ==
[2023-06-16 17:39] LABS: HEMATOCRIT 41.1 % (42.0-52.0); HEMOGLOBIN 13.4 g/dl (13.5-17.5); MEAN CORPUSCULAR HEMOGLOBIN 30.3 pg (27.0-33.0); MEAN CORPUSCULAR HGB CONC 32.6 g/dl (32.0-36.5); PLATELET COUNT, AUTOMATED 192 10^3/uL (150-450); RED BLOOD COUNT 4.42 10^6/uL (4.30-6.10); WHITE BLOOD COUNT 12.7 10^3/uL (4.0-10.0)
[2023-06-16 17:43] LABS: ALBUMIN 3.4 G/DL (3.2-5.2); BILIRUBIN,TOTAL 0.7 MG/DL (0.3-1.2); CALCIUM LEVEL 9.6 MG/DL (8.3-10.6); CREATININE FOR GFR 1.32 MG/DL (0.70-1.30); GLOMERULAR FILTRATION RATE 55.4 (>35); POTASSIUM SERUM 4.5 MMOL/L (3.5-5.1); TOTAL PROTEIN 6.6 G/DL (5.7-8.2)
[2023-06-16 17:45] LABS: FREE T4 0.96 NG/DL (0.89-1.76); THYROID STIMULATING HORMONE 1.25 uIU/ML (0.55-4.78)
[2023-06-19 08:11] LABS: TESTOSTERONE FREE (DIRECT) 3.9 pg/mL (6.6-18.1)
== END ==
LOC: M CLY 10:49
PROVIDERS: ATTEND Family Medicine
DX: R25.1 Tremor, unspecified (principal); I10 Essential (primary) hypertension; N40.1 Benign prostatic hyperplasia with lower urinary tract symptoms; D64.9 Anemia, unspecified

== ENCOUNTER → 2023-07-03 | Outpatient (CLI) | payer OTHER, MEDICAID | LOC: M PLARAD 15:08 | PROVIDERS: ATTEND Family Medicine | DX: M54.12 Radiculopathy, cervical region (principal); R20.0 Anesthesia of skin; M48.02 Spinal stenosis, cervical region ==

== ENCOUNTER → 2023-12-14 | Outpatient (REF) | payer OTHER, MEDICAID ==
[2023-12-14 19:43] LABS: HEMATOCRIT 41.1 % (42.0-52.0); HEMOGLOBIN 13.4 g/dl (13.5-17.5); MEAN CORPUSCULAR HEMOGLOBIN 30.5 pg (27.0-33.0); MEAN CORPUSCULAR HGB CONC 32.6 g/dl (32.0-36.5); MEAN CORPUSCULAR VOLUME 93.6 fl (80.0-96.0); PLATELET COUNT, AUTOMATED 192 10^3/uL (150-450); RED BLOOD COUNT 4.39 10^6/uL (4.30-6.10); WHITE BLOOD COUNT 7.9 10^3/uL (4.0-10.0)
[2023-12-14 19:56] LABS: HEMOGLOBIN A1c 5.5 % (4.0-6.0)
[2023-12-14 20:06] LABS: ALBUMIN 3.6 G/DL (3.2-5.2); BILIRUBIN,TOTAL 0.5 MG/DL (0.3-1.2); CALCIUM LEVEL 9.5 MG/DL (8.3-10.6); CHOLESTEROL RISK RATIO 3.52 (<5); CREATININE FOR GFR 1.34 MG/DL (0.70-1.30); GLOMERULAR FILTRATION RATE 54.5 (>35); HDL CHOLESTEROL 45.9 MG/DL (>40); LDL CHOLESTEROL 89.7 MG/DL (<100); NON-HDL-C 116.1 MG/DL; POTASSIUM SERUM 4.6 MMOL/L (3.5-5.1); TOTAL PROTEIN 6.8 G/DL (5.7-8.2)
[2023-12-14 20:08] LABS: FERRITIN 141.9 NG/ML (10.5-307.3)
== END ==
LOC: M SFHCCLAY 10:32
PROVIDERS: ATTEND Family Medicine
DX: E11.22 Type 2 diabetes mellitus with diabetic chronic kidney disease (principal); I10 Essential (primary) hypertension; D64.9 Anemia, unspecified; E78.2 Mixed hyperlipidemia

== ENCOUNTER → 2024-04-28 | Outpatient (REF) | payer OTHER, MEDICAID ==
[2024-04-28 18:01] LABS: APPEARANCE, URINE HAZY (CLEAR); BACTERIA, URINE AUTO NEGATIVE (NEGATIVE); BILIRUBIN, URINE AUTO NEGATIVE (NEGATIVE); BLOOD, URINE BLOOD NEGATIVE (NEGATIVE); CALCIUM OXALATE CRYSTALS MODERATE; COLOR, URINE YELLOW (YELLOW); GLUCOSE, URINE (UA) AUTO NEGATIVE (NEGATIVE); KETONE, URINE AUTO NEGATIVE (NEGATIVE); LEUKOCYTE ESTERASE, URINE AUTO NEGATIVE (NEGATIVE); MUCUS, URINE SMALL (NEGATIVE); NITRITE, URINE AUTO NEGATIVE (NEGATIVE); PROTEIN, URINE AUTO 1+ mg/dL (NEGATIVE); RBC, URINE AUTO 2 /HPF (0-3); SQUAMOUS EPITHELIAL CELL UR AU 0 /HPF (0-6); UROBILINOGEN, URINE AUTO 0.2 mg/dL (0.0-2.0); WBC, URINE AUTO 4 /HPF (0-3)
== END ==
LOC: M SMT 17:12
PROVIDERS: ATTEND Specialist
DX: R31.0 Gross hematuria (principal)

== ENCOUNTER → 2024-06-13 | Outpatient (CLI) | payer OTHER, MEDICAID ==
[~2024-06-13] MED LIST changes: +ISOVUE-370 76% 100ML VIAL As Ordered ONE
== END ==
LOC: M RAD 15:06
PROVIDERS: ATTEND Specialist
DX: C67.2 Malignant neoplasm of lateral wall of bladder (principal); N21.0 Calculus in bladder; N32.3 Diverticulum of bladder

== ENCOUNTER 2024-08-12 08:10 | Day surgery (SDC) | payer OTHER, MEDICAID ==
[~2024-08-12] VITALS: Ht 170.2 cm; Wt 95.7 kg
[2024-08-12] VITALS (8 sets, daily range): BP systolic 98–134; BP diastolic 44–82; TEMP 97.3–98.6; O2SAT 93–97
[~2024-08-12 08:10] MED LIST changes: +ALBU2.5V10 INH; +DULO1CAP4 PO; +GLYCOPYRROLATE INJ 0.2 MG/ML 2 ML VIAL As Ordered ONE; -ISOVUE-370 76% 100ML VIAL As Ordered ONE; +LIDOCAINE 2% 100 MG/5 ML SDV (FOR ANES.) As Ordered ONE; +MIDO2.5T3 PO; +ONDANSETRON 4MG 2ML VIAL As Ordered ONE; +dexAMETHasone 4 MG/ML 1 ML VIAL As Ordered ONE; +fentaNYL 100 MCG/2 ML INJECTION As Ordered ONE; +propofoL 200 MG/20 ML VIAL As Ordered ONE
[2024-08-12] MEDS ORDERED: LR 1,000 ML IV SCH (08:15)
[2024-08-12] MEDS ORDERED: SUGAMMADEX SODIUM 500 MG/5 ML VIAL As Ordered ONE (08:34)
[2024-08-12] MEDS ORDERED: ROCURONIUM BROMIDE 50MG/5ML VIAL As Ordered ONE (08:34)
[2024-08-12] MEDS: LIDOCAINE 2% 5 ML JELLY UROJET As Ordered ONE (09:20)
[2024-08-12] MEDS: ceFAZolin SOD 2 GM IV ONCE IV ONE (09:52)
[2024-08-12] MEDS ORDERED: ACETAMINOPHEN 1000MG/100ML IV BAG As Ordered ONE (10:02)
[2024-08-12] MEDS ORDERED: REMIFENTANIL 1MG VIAL As Ordered ONE (10:19)
[2024-08-12] MEDS ORDERED: PHENYLEPHRINE 10MG/ML 1ML VIAL As Ordered ONE (10:23)
[2024-08-12] MEDS ORDERED: ePHEDrine SULFATE 25 MG/5 ML SYRINGE As Ordered ONE (11:00)
[2024-08-12] MEDS: MITOMYCIN INTRAVESIC ONE (11:14)
[2024-08-12] MEDS: NS INTRAVESIC ONE (11:14)
[2024-08-12] MEDS ORDERED: ONDANSETRON 4MG 2ML VIAL IV PRN (11:35)
[2024-08-12] MEDS ORDERED: MORPHINE 2 MG/ML 1 ML VIAL IV PRN (11:35)
[2024-08-12] MEDS ORDERED: fentaNYL 100 MCG/2 ML INJECTION IV PRN (11:35)
[2024-08-12] MEDS ORDERED: oxyCODONE 5MG TAB PO PRN (11:35)
[2024-08-12] MEDS ORDERED: HOME MED LIST COMPLETE! XX SCH (13:50)
[2024-08-12] MEDS: D5W/0.45% SODIUM CHLORIDE 1,000 ML IV SCH (14:53)
[2024-08-12] MEDS ORDERED: PROPOFOL 1,000 MG/100 ML VIAL As Ordered ONE (14:59)
[2024-08-12] MEDS: PHENAZOPYRIDINE 100 MG TAB PO SCH (16:20)
[2024-08-12] MEDS: MIDODRINE 2.5 MG TAB PO SCH (18:11)
[2024-08-13] VITALS: BP 114/80; TEMP 98.8; O2SAT 95
[2024-08-13 04:00] VITALS: BP 91/56; TEMP 99; O2SAT 92
[2024-08-13 08:41] VITALS: BP 120/55
== END 2024-08-13 11:38 | disposition home or self-care (01) ==
LOC: M SDC 08:10 → M MS5PR 14:00 → M SDC 08-13 11:38
PROVIDERS: ATTEND Specialist
DX: C67.9 Malignant neoplasm of bladder, unspecified (principal); C61 Malignant neoplasm of prostate; N21.0 Calculus in bladder; N32.3 Diverticulum of bladder; N32.89 Other specified disorders of bladder; R31.0 Gross hematuria; I25.10 Atherosclerotic heart disease of native coronary artery without angina pectoris; Z79.899 Other long term (current) drug therapy; Z87.891 Personal history of nicotine dependence; Z95.1 Presence of aortocoronary bypass graft; Z95.5 Presence of coronary angioplasty implant and graft; Z96.1 Presence of intraocular lens
CPT/HCPCS: 51720; 52240; 52317; 52601; 82365; 88305; J0131; J0690; J1100; J1596; J2371; J2405; J3010; J9280

== ENCOUNTER → 2024-09-20 | Outpatient (REF) | payer OTHER, MEDICAID ==
[~2024-09-20] MED LIST changes: -GLYCOPYRROLATE INJ 0.2 MG/ML 2 ML VIAL As Ordered ONE; -LIDOCAINE 2% 100 MG/5 ML SDV (FOR ANES.) As Ordered ONE; -ONDANSETRON 4MG 2ML VIAL As Ordered ONE; -dexAMETHasone 4 MG/ML 1 ML VIAL As Ordered ONE; -fentaNYL 100 MCG/2 ML INJECTION As Ordered ONE; -propofoL 200 MG/20 ML VIAL As Ordered ONE
== END ==
LOC: M SFHCCLAY 15:20
PROVIDERS: ATTEND Physician Assistant
DX: Z53.9 Procedure and treatment not carried out, unspecified reason (principal)

== ENCOUNTER → 2024-10-06 | Outpatient (CLI) | payer OTHER, MEDICAID | LOC: M PLAIMG 10:38 | PROVIDERS: ATTEND Physician Assistant | DX: R42 Dizziness and giddiness (principal); G31.89 Other specified degenerative diseases of nervous system; I67.82 Cerebral ischemia ==

== ENCOUNTER → 2024-11-28 | Outpatient (CLI) | payer OTHER, MEDICAID ==
[~2024-11-28] MED LIST changes: +ZINC50TA37 PO; -ZINC50TA4 PO
== END ==
LOC: M CLY 13:48
PROVIDERS: ATTEND Physician Assistant
DX: M25.511 Pain in right shoulder (principal)

== ENCOUNTER → 2024-11-28 | Outpatient (CLI) | payer OTHER, MEDICAID | LOC: M CLY 13:57 | PROVIDERS: ATTEND Physician Assistant | DX: M19.011 Primary osteoarthritis, right shoulder (principal) ==

== ENCOUNTER → 2024-12-28 | Outpatient (CLI) | payer OTHER, MEDICAID | LOC: M PLAIMG 08:00 | PROVIDERS: ATTEND Family Medicine | DX: M19.011 Primary osteoarthritis, right shoulder (principal); M75.121 Complete rotator cuff tear or rupture of right shoulder, not specified as traumatic; M62.511 Muscle wasting and atrophy, not elsewhere classified, right shoulder ==